=== PATIENT | female | born 1945 | race Caucasian/White ===

== ENCOUNTER 2023-08-17 21:35 | Observation (INO) ==
[2023-08-17 22:40] LABS: iSTAT Creatinine 0.9 mg/dl (0.6-1.3); iSTAT Hemoglobin 13.6 g/dl (12.0-16.0); iSTAT Ionized Calcium 1.16 mmol/l (1.12-1.32); iSTAT Potassium 3.6 mmol/L (3.3-5.0)
--- NOTE | 2023-08-17 22:47 | Emergency Department Note ---
Impression & Plan Acute weakness, Emphysema of lung, Hypoxia, Ataxia ED Provider Note Name: EDWIN LIEBERMAN Age: 77 Sex: Female Arrives Via: Ambulance Informant: Patient and daughter ED Provider: Cirilo Palma MD Chief Complaint: Weakness Impression: As per impressions above Medical Decision Makin-year-old female who is a daily smoker arrives for evaluation of relatively rapid onset fatigue weakness and lethargy over the last 12 to 24 hours. Patient has not seen a primary care provider in almost 50 years. No specific diagnoses. On arrival she is moderately hypertensive and appears bit dehydrated. I exam is consistent with emphysema as is chest x-ray. She is mildly hypoxic though no clear evidence of infection. Suspect this may be chronic hypoxia for her given chronic lung disease. CT of the head is fortunately unremarkable. She has been weak generally without any focal neurologic deficits. Symptoms ongoing for at least 12 hours thus not a tPA candidate. No focal neurologic deficit to suspect large vessel occlusion. Given patient's generalized weakness her hypoxia and no outpatient provider to speak of clearly hospitalization would be indicated for further workup and evaluation. After discussing with hospitalist will give her dose of aspirin 324 mg p.o. as a continue workup for stroke months other pathology. She is not significantly dyspneic nor tachycardic and given more likely cause of this emphysema of her hypoxia I do not think this is consistent with PE at this time. Triage/Nursing Notes reviewed by Me Differential:Infection, dehydration, metabolic abnormality, hypo/hyperglycemia, electrolyte disturbance, anemia, hypoxia, cardiac sources, intracerebral event, toxicologic, neurologic, as well as other pathologies. Vital Signs: reviewed and remarkable for hypoxia mild Interventions: Aspirin 324 mg p.o. and nasal cannula O2 Labs:ED labs Reviewed by me and remarkable for no significant abnormalities Imaging:CT of the head without contrast as per my informal interpretation no mass effect or blood appreciated. Confirmed by radiologist. 1 view chest x-ray as per my interpretation bilateral emphysematous findings. No overt infiltrate nor significant effusion appreciated. EKG:As per my interpretation. Indication weakness. Normal sinus rhythm at 71 bpm QTc of 432. There is no ectopy nor ischemia. There are no previous EKGs for comparison. Of note there is anterior Q wave which could mean previous infarct. Cardiac/Tele Monitoring: Cardiac Monitoring: An Order was placed for continuous cardiac monitoring. The monitor shows a rate of 70 with a normal sinus rhythm. Consults:Dr Lorenzo of the [facility] discussed with him and plan to hospitalize Plan: Disposition:Hospitalization. Condition: Good History of Present Illness: 77-year-old female arrives for evaluation of altered mental status. Patient has not actually seen a physician in the last 50-marcos years other than the time she broke her right wrist a few more years ago. Patient apparently has been very lethargic and tired throughout the day. She has not been wanting to get off the couch and has not been interacting as normally. When trying to get her up family notes she sways from [id number] and was so unsteady they called 911. She does not have a specific arm or leg that was weak. While she has slow speech and she cannot remember the date she does not have any specific slurred speech that daughter is noted. No known recent falls or trauma. No fevers. She did have an episode of dry heaves at 1 point today. Past Medical History:Unknown as does not see any doctors Home Medications:No daily medications. Allergies:No known drug allergy Vitals:Blood Pressure: 192/106, Pulse 71, RR 20, T 36.6C, O2 98% on 2L NC Physical Exam: GENERAL: Patient is tired appearing and in mild distress. RESPIRATORY: No dyspnea. Clear to auscultation and equal bilaterally. CARDIOVASCULAR: Regular rate and rhythm.No murmur appreciated. GASTROINTESTINAL: Abdomen soft, non-tender, no peritonitis. EXTREMITIES: Normal motion all extremities, no cyanosis, no edema. NEUROLOGIC: Awake answers questions but not oriented. No focal neurologic deficits appreciated SKIN: No rash, no jaundice, no diaphoresis. PSYCH: Appropriate GCS: 15 ED Course: Times/Reassessments: Patient stable throughout. Blood pressure is starting to trend down a bit. 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 Beliefs That Will Affect Care: None Current Living Situation: Family Current Living Situation Comment: with daughter dawood Other Information That Helps Us Care for You: No Feels Safe at Home: Yes Safety Concerns: Feels Safe At This Time Assistive Devices: None Allergies Allergies Allergy/AdvReac Type Severity Reaction Status Date / Time No Known Allergies Allergy Unverified 12/24/19 10:00 Home Meds Home Medications Medication Instructions Recorded Confirmed No Known Home Medications 08/18/23 08/18/23 Results & Data (ED) Vital Signs Vital Signs - 24 hr 08/17/23 21:53 08/17/23 21:58 08/17/23 22:00 Temperature 36.6 C Temperature Source Oral Pulse Rate 92 H 70 Pulse Rate [Apical] Pulse Rate from SpO2 Sensor Pulse Rhythm Pulse Rhythm [Apical] Pulse Strength [Apical] Respiratory Rate 24 Respiratory Effort / Characteristics Non-Labored Spontaneous Respiratory Depth Normal Respiratory Pattern Regular Blood Pressure 177/112 H Blood Pressure [Right Arm] Blood Pressure Mean 133 Blood Pressure Mean [Right Arm] Blood Pressure Position [Right Arm] Pulse Oximetry 86 L 86 L Oxygen Delivery Method Room Air Room Air Oxygen Flow Rate 0 Sepsis Recent Fever Within 48 Hours No Sepsis New/Unexplained Change in Mental Status No Sepsis Action Taken by Nursing No Action Required Oxygen Flow Rate - Titration 2 Pulse Oximetry Post Tiitration 95 08/17/23 22:05 08/17/23 22:32 08/17/23 22:51 Temperature Temperature Source Pulse Rate 71 Pulse Rate [Apical] 70 Pulse Rate from SpO2 Sensor Pulse Rhythm Regular Pulse Rhythm [Apical] Regular Pulse Strength [Apical] Normal Respiratory Rate 22 20 Respiratory Effort / Characteristics Non-Labored Spontaneous Respiratory Depth Normal Respiratory Pattern Regular Blood Pressure Blood Pressure [Right Arm] 192/106 H Blood Pressure Mean Blood Pressure Mean [Right Arm] 134 Blood Pressure Position [Right Arm] Lying Pulse Oximetry 99 98 91 Oxygen Delivery Method Nasal Cannula Nasal Cannula Room Air Oxygen Flow Rate 2 2 Sepsis Recent Fever Within 48 Hours Sepsis New/Unexplained Change in Mental Status Sepsis Action Taken by Nursing Oxygen Flow Rate - Titration Pulse Oximetry Post Tiitration 08/17/23 23:09 08/17/23 23:30 08/18/23 00:30 Temperature Temperature Source Pulse Rate 67 70 66 Pulse Rate [Apical] Pulse Rate from SpO2 Sensor 67 66 65 Pulse Rhythm Pulse Rhythm [Apical] Pulse Strength [Apical] Respiratory Rate 23 21 18 Respiratory Effort / Characteristics Respiratory Depth Respiratory Pattern Blood Pressure 163/102 H 154/92 H 146/93 H Blood Pressure [Right Arm] Blood Pressure Mean 122 112 110 Blood Pressure Mean [Right Arm] Blood Pressure Position [Right Arm] Pulse Oximetry 97 98 96 Oxygen Delivery Method Nasal Cannula Nasal Cannula Nasal Cannula Oxygen Flow Rate 2 1 1 Sepsis Recent Fever Within 48 Hours Sepsis New/Unexplained Change in Mental Status Sepsis Action Taken by Nursing Oxygen Flow Rate - Titration Pulse Oximetry Post Tiitration 08/18/23 01:00 Temperature Temperature Source Pulse Rate 73 Pulse Rate [Apical] Pulse Rate from SpO2 Sensor 71 Pulse Rhythm Pulse Rhythm [Apical] Pulse Strength [Apical] Respiratory Rate 23 Respiratory Effort / Characteristics Respiratory Depth Respiratory Pattern Blood Pressure 181/105 H Blood Pressure [Right Arm] Blood Pressure Mean 130 Blood Pressure Mean [Right Arm] Blood Pressure Position [Right Arm] Pulse Oximetry 96 Oxygen Delivery Method Nasal Cannula Oxygen Flow Rate 1 Sepsis Recent Fever Within 48 Hours Sepsis New/Unexplained Change in Mental Status Sepsis Action Taken by Nursing Oxygen Flow Rate - Titration Pulse Oximetry Post Tiitration Laboratory Data 08/18/23 05:50 08/18/23 05:50 Lab Results 08/17/23 08/17/23 08/17/23 Range/Units 22:07 22:15 22:55 WBC 10.50 (4.8-10.8) K/ul RBC 4.23 (4.20-5.40) M/uL Hgb 12.6 (12.0-16.0) g/dl POC Hgb 13.6 (12.0-16.0) g/dl Hct 39.6 (37.0-47.0) % POC Hct 40 (37-47) % MCV 93.6 (80.0-100.0) fL MCH 29.8 (25.0-34.0) pg MCHC 31.8 L (32.0-36.0) g/dL RDW Std Deviation 46.6 H (36.4-46.3) fL RDW Coeff of Sammy 13.5 (11.5-14.5) % Plt Count 338 (130-400) K/uL MPV 10.1 (9.4-12.4) fL PT 11.0 (9.0-12.0) Seconds INR 1.0 (0.9-1.1) APTT 21 (21-31) Seconds PTT Ratio 0.7 POC Sodium 136 (135-144) mmol/L Sodium 136 (136-145) mmol/L POC Potassium 3.6 (3.3-5.0) mmol/L Potassium 3.6 (3.5-5.1) mmol/L POC Chloride 100 L (101-112) mmol/L Chloride 100 (98-107) mmol/L Carbon Dioxide 27 (21-32) mmol/L POC Total CO2 28 (24-31) mmol/L Anion Gap 9 (3-11) POC Anion Gap 12.0 L (16-25) mmol/L POC BUN 14 (7-18) mg/dl BUN 15 (6-23) mg/dl Creatinine 0.95 (0.6-1.2) mg/dl POC Creatinine 0.9 (0.6-1.3) mg/dl Est Cr Clr Drug Dosing 36.5 ml/min Est GFR ( Amer) 67.9 ml/min Est GFR (Non-Af Amer) 58.6 ml/min BUN/Creatinine Ratio 15.8 (10-20) Glucose 148 H (70-99(Fasting)) mg/dl POC Glucose (other) 147 H (70-99) mg/dl Calcium 9.4 (8.6-10.3) mg/dl POC Ioniz Calcium Lashonda 1.16 (1.12-1.32) mmol/l Magnesium 2.1 (1.7-2.4) mg/dl Total Bilirubin 0.3 (0.2-1.0) mg/dl AST 16 (13-39) U/L ALT 8 (7-52) U/L Alkaline Phosphatase 79 (34-104) U/L Total Protein 8.0 (6.0-8.3) gm/dl Albumin 4.1 (3.4-5.0) gm/dl Globulin 3.9 (2.5-4.0) gm/dl Albumin/Globulin Ratio 1.1 (0.9-2) SARS-CoV-2 (PCR) NEGATIVE (Negative) Influenza Type A (PCR) Negative (Neg) Influenza Type B (PCR) Negative (Neg) RSV (RT-PCR) Negative (Neg) Administered Medications Aspirin (Aspirin 81 Mg Ectab) 81 mg PO [facility] Stop: 09/17/23 08:59 Last Admin: 08/18/23 08:59 Dose: 81 mg Documented By: VICKI Clopidogrel Bisulfate (Clopidogrel Bisulfate 75 Mg Tab) 75 mg PO QAM [facility] Stop: 09/17/23 11:44 Last Admin: 08/18/23 13:40 Dose: 75 mg Documented By: VICKI Heparin Sodium (Porcine) (Heparin Sod 5,000 Unit/0.5 Ml Vial) 5,000 units SQ Q12 [facility] Stop: 09/17/23 08:59 Last Admin: 08/18/23 08:58 Dose: 5,000 units Documented By: VICKI Ondansetron HCl (Ondansetron Inj 2 Mg/Ml 2 Ml Vial) 4 mg IV Q6H PRN PRN Reason: Nausea Stop: 09/17/23 04:08 Last Admin: 08/18/23 05:45 Dose: 4 mg Documented By: TAHIR Discontinued Medications Aspirin (Aspirin 81 Mg Chew) 324 mg PO NOW STA Stop: 08/18/23 02:02 Last Admin: 08/18/23 02:46 Dose: 324 mg Documented By: CRISTOBAL Atorvastatin Calcium (Atorvastatin 40 Mg Tab) 40 mg PO [facility] Stop: 09/17/23 08:59 Last Admin: 08/18/23 08:59 Dose: 40 mg Documented By: VICKI Potassium Chloride/Sodium Chloride (Normal Saline W/20 Meq Kcl) 20 meq in 1,000 mls @ 80 mls/hr IV .[id number] STA; Protocol Stop: 08/18/23 15:07 Last Infusion: 08/18/23 15:34 Dose: Infused Documented By: Admin: 08/18/23 02:46 Dose: 80 mls/hr Documented By: CRISTOBAL Lorazepam 0.25 mg/ Syringe 0.25 mls @ 2 mls/min IV NOW STA Stop: 08/18/23 09:34 Last Admin: 08/18/23 11:24 Dose: Not Given Documented By: VICKI Ioversol (Optiray 320 125ml) 115 ml IV ONCE ONE Stop: 08/18/23 02:11 Last Admin: 08/18/23 02:10 Dose: 115 ml Documented By: VALERY Imaging Data Radiologist's Impression: Chest X-Ray 08/17/23 22:30 XR chest 1V portable CLINICAL HISTORY: stroke alert TECHNIQUE: Single frontal radiograph of the chest was obtained. Comparison: None available at the time of this dictation. FINDINGS: No lines and tubes are seen. The cardiomediastinal silhouette is normal. Emphysema is seen. No evidence of pleural effusion or pneumothorax. IMPRESSION: No acute chest disease. ACT 112: Negative or not required by law. Electronically signed by: Omid Mcnamara M.D. 08/18/2023 9:42 AM Discharge Plan Visit Data Chief Complaint: Dizziness Stated Complaint: NAUSEA/DIZZINESS ED Provider: Cirilo Palma Discharge Problem: Acute weakness, Emphysema of lung, Hypoxia, Ataxia Patient Disposition: Admitted As Inpatient Discharge Instructions Interventions: ED Discharge Assessment Last Done: 08/18/23 03:26 Discharge Problem: Emphysema of lung Qualifiers: Emphysema type: panlobular Qualified Code(s): J43.1 - Panlobular emphysema
[2023-08-17 23:03] LABS: Hematocrit (blood only) 39.6 % (37.0-47.0); Hemoglobin 12.6 g/dl (12.0-16.0); Mean Corpuscular Hemoglobin 29.8 pg (25.0-34.0); Mean Corpuscular Hgb Conc 31.8 g/dL (32.0-36.0); Mean Corpuscular Volume 93.6 fL (80.0-100.0); Mean Platelet Volume 10.1 fL (9.4-12.4); Platelet Count 338 K/uL (130-400); RDW Coefficient of Variation 13.5 % (11.5-14.5); RDW Standard Deviation 46.6 fL (36.4-46.3); Red Blood Count 4.23 M/uL (4.20-5.40)
[2023-08-17 23:15] LABS: Albumin Globulin Ratio 1.1 (0.9-2); Albumin Level 4.1 gm/dl (3.4-5.0); BUN Creatinine Ratio 15.8 (10-20); Bilirubin,Total 0.3 mg/dl (0.2-1.0); Calcium 9.4 mg/dl (8.6-10.3); Creatinine Clr Calc Pharmacy 36.5 ml/min; Est GFR (African American) 67.9 ml/min; Est GFR (Non-African American) 58.6 ml/min; Globulin 3.9 gm/dl (2.5-4.0); Magnesium 2.1 mg/dl (1.7-2.4); Potassium 3.6 mmol/L (3.5-5.1)
[2023-08-17 23:26] LABS: Partial Thromboplastin Ratio 0.7; Partial Thromboplastin Time 21 Seconds (21-31)
[2023-08-17 23:55] LABS: Influenza A virus by PCR Negative (Neg); Influenza B virus by PCR Negative (Neg); RSV by PCR Negative (Neg); SARS CoV2 RNA(COVID-19) Ceph NEGATIVE (Negative)
--- NOTE | 2023-08-18 01:10 | CT Scan Report ---
Exam(s): CT HEAD Without Contrast EXAM: CT Head Without Intravenous Contrast CLINICAL HISTORY: Reason for exam: Dizziness. TECHNIQUE: Axial computed tomography images of the head/brain without intravenous contrast. CTDI is 36.55 mGy and DLP is 625.8 mGy-cm. Automated exposure control was utilized for the study. A dose lowering technique was utilized adhering to the principles of ALARA. COMPARISON: No relevant prior studies available. FINDINGS: Brain: Volume loss with prominent ventricles and sulci. Periventricular white matter hypoattenuation likely reflects chronic small vessel disease. No hemorrhage. Ventricles: See above. Bones/joints: Unremarkable. No acute fracture. Soft tissues: Unremarkable. Sinuses: Unremarkable as visualized. No acute sinusitis. Mastoid air cells: Unremarkable as visualized. No mastoid effusion. IMPRESSION: No acute findings in the head/brain. Electronically signed by: Laura Lamb M.D. 08/18/23 01:09 AM
--- NOTE | 2023-08-18 01:52 | History & Physical Report ---
Date of Service August 18, 2023 Assessment & Plan (1) Altered mental status: (2) Fatigue: (3) Gait instability: (4) Lethargy: (5) Tobacco use disorder: (6) Emphysema lung: Plan Altered mental status- The patient will be admitted to telemetry for serial cardiac enzymes, serial EKG's, cardiac rhythm monitoring and a 2-D echocardiogram with Dopplers. Symptoms began acutely earlier in the day Symptoms of fatigue, lethargy and unsteadiness on feet CT scan of head without contrast negative Order CTA head and neck Urinalysis pending Stroke without tPA order set Permissive hypertension Recommend aspirin 324 mg now, then 81 mg every morning Consult PT/OT/speech NSS + KCl 20 mill equivalents at 80 mL/h x 1 L Tobacco use disorder- Tobacco use since she was a teenager Reports smoking 5 cigarettes daily Cessation counseling Emphysema- Chest x-ray is suggestive of Mildly hypoxic DuoNebs every 2 hours as needed Hyperglycemia- Glucose 148 on admission labs Repeat in a.m. Check hemoglobin A1c and a fasting lipid panel History of Present Illness Chief Complaint: The patient presents emergency department with lethargy, fatigue, unsteadiness on feet and mild confusion that began earlier in the day today, and persisted throughout the day. Primary Care Provider: NO PCP The patient is a 77-year-old female with no significant past medical history other than right wrist fracture, and 60-year tobacco use history. She presents to the emergency department with symptoms as noted above. She denies any recent travels or sick exposures. She denies any associated respiratory GI or urinary type symptoms. She has not had any previous symptoms of gait instability, but also reportedly does not regularly physically active. She has not had any recent weight loss Allergies Allergy/AdvReac Type Severity Reaction Status Date / Time No Known Allergies Allergy Unverified 12/24/19 10:00 Home Medications Medication Instructions Recorded Confirmed Type No Known Home Medications 08/18/23 08/18/23 History Past Med/Surg History Medical History (Updated 08/18/23 @ 02:19 by Brayan Lorenzo MD) Tobacco use disorder Closed fracture of right distal radius Social History Smoking Status: Current every day smoker Tobacco Type: Cigarettes Feels Safe at Home: Yes Review of Systems Review of Systems: The patient denies chest pain, palpitations, shortness of breath, dyspnea on exertion, cough, lower extremity swelling, sore throat, fevers, chills, sweats, weight change, nausea, vomiting, diarrhea , constipation, abdominal pain, pelvic pain, blood in urine or stool, dysuria, urinary frequency or urgency, lightheadedness, dizziness, headache, memory loss, loss of consciousness, rash, abnormal bruising or bleeding, focal weakness, numbness or tingling in arms or legs, generalized arthralgias or myalgias, back or neck pain, or night sweats. The review of systems is otherwise negative other than for that already noted above, and at least 10 systems have been reviewed. Physical Exam Physical Exam: The patient is awake, alert and oriented 3, appears relatively thin, normocephalic and atraumatic, lying in bed and in no acute distress. HEENT--PERRL, EOMI, mucous membranes and oropharynx mildly dry. Neck--supple. No JVD. No bruits. Thyroid normal, trachea midline, no adenopathy. Heart--normal S1 and S2. No murmurs, rubs or gallops. Lungs--clear bilaterally, but decreased breath sounds throughout. No respiratory distress, no accessory muscle use. Abdomen--normal bowel sounds and soft. Nontender. Nondistended, no hernias or masses, no organomegaly. Extremities--No edema. Dermatologic--normal skin turgor, normal color, no abnormal lymph nodes, no rash. Neurologic--cranial nerves II through XII grossly intact. Rheumatologic--normal range of motion. Psychiatric--normal affect. Results & Data Results & Data Vital Signs (Past 12 Hours) Vital Signs Temp Pulse Pulse Resp BP BP Pulse Ox 08/18/23 00:30 66 18 146/93 H 96 08/17/23 23:30 70 21 154/92 H 98 08/17/23 23:09 67 23 163/102 H 97 08/17/23 22:51 91 08/17/23 22:32 71 20 98 08/17/23 22:05 70 22 192/106 H 99 08/17/23 22:00 70 08/17/23 21:58 86 L 08/17/23 21:53 36.6 C 92 H 24 177/112 H 86 L O2 Del Method O2 Flow Rate 08/18/23 00:30 Nasal Cannula 1 08/17/23 23:30 Nasal Cannula 1 08/17/23 23:09 Nasal Cannula 2 08/17/23 22:51 Room Air 08/17/23 22:32 Nasal Cannula 2 08/17/23 22:05 Nasal Cannula 2 08/17/23 22:00 08/17/23 21:58 Room Air 0 08/17/23 21:53 Room Air Laboratory Results Laboratory Results WBC 10.50 K/ul (4.8-10.8) 08/17/23 22:07 RBC 4.23 M/uL (4.20-5.40) 08/17/23 22:07 Hgb 12.6 g/dl (12.0-16.0) 08/17/23 22:07 POC Hgb 13.6 g/dl (12.0-16.0) 08/17/23 22:15 Hct 39.6 % (37.0-47.0) 08/17/23 22:07 POC Hct 40 % (37-47) 08/17/23 22:15 MCV 93.6 fL (80.0-100.0) 08/17/23 22:07 MCH 29.8 pg (25.0-34.0) 08/17/23 22:07 MCHC 31.8 g/dL (32.0-36.0) L 08/17/23 22:07 RDW Std Deviation 46.6 fL (36.4-46.3) H 08/17/23 22:07 RDW Coeff of Sammy 13.5 % (11.5-14.5) 08/17/23 22:07 Plt Count 338 K/uL (130-400) 08/17/23 22:07 MPV 10.1 fL (9.4-12.4) 08/17/23 22:07 PT 11.0 Seconds (9.0-12.0) 08/17/23 22:07 INR 1.0 (0.9-1.1) 08/17/23 22:07 APTT 21 Seconds (21-31) 08/17/23 22:07 PTT Ratio 0.7 08/17/23 22:07 POC Sodium 136 mmol/L (135-144) 08/17/23 22:15 Sodium 136 mmol/L (136-145) 08/17/23 22:07 POC Potassium 3.6 mmol/L (3.3-5.0) 08/17/23 22:15 Potassium 3.6 mmol/L (3.5-5.1) 08/17/23 22:07 POC Chloride 100 mmol/L (101-112) L 08/17/23 22:15 Chloride 100 mmol/L (98-107) 08/17/23 22:07 Carbon Dioxide 27 mmol/L (21-32) 08/17/23 22:07 POC Total CO2 28 mmol/L (24-31) 08/17/23 22:15 Anion Gap 9 (3-11) 08/17/23 22:07 POC Anion Gap 12.0 mmol/L (16-25) L 08/17/23 22:15 POC BUN 14 mg/dl (7-18) 08/17/23 22:15 BUN 15 mg/dl (6-23) 08/17/23 22:07 Creatinine 0.95 mg/dl (0.6-1.2) 08/17/23 22:07 POC Creatinine 0.9 mg/dl (0.6-1.3) 08/17/23 22:15 Est Cr Clr Drug Dosing 36.5 ml/min 08/17/23 22:07 Est GFR ( Amer) 67.9 ml/min 08/17/23 22:07 Est GFR (Non-Af Amer) 58.6 ml/min 08/17/23 22:07 BUN/Creatinine Ratio 15.8 (10-20) 08/17/23 22:07 Glucose 148 mg/dl (70-99(Fasting)) H 08/17/23 22:07 POC Glucose (other) 147 mg/dl (70-99) H 08/17/23 22:15 Calcium 9.4 mg/dl (8.6-10.3) 08/17/23 22:07 POC Ioniz Calcium Lashonda 1.16 mmol/l (1.12-1.32) 08/17/23 22:15 Magnesium 2.1 mg/dl (1.7-2.4) 08/17/23 22:07 Total Bilirubin 0.3 mg/dl (0.2-1.0) 08/17/23 22:07 AST 16 U/L (13-39) 08/17/23 22:07 ALT 8 U/L (7-52) 08/17/23 22:07 Alkaline Phosphatase 79 U/L (34-104) 08/17/23 22:07 Total Protein 8.0 gm/dl (6.0-8.3) 08/17/23 22:07 Albumin 4.1 gm/dl (3.4-5.0) 08/17/23 22:07 Globulin 3.9 gm/dl (2.5-4.0) 08/17/23 22:07 Albumin/Globulin Ratio 1.1 (0.9-2) 08/17/23 22:07 SARS-CoV-2 (PCR) NEGATIVE (Negative) 08/17/23 22:55 Influenza Type A (PCR) Negative (Neg) 08/17/23 22:55 Influenza Type B (PCR) Negative (Neg) 08/17/23 22:55 RSV (RT-PCR) Negative (Neg) 08/17/23 22:[address] 08/17/23 22:30 Exam(s): CT HEAD Without Contrast EXAM: CT Head Without Intravenous Contrast CLINICAL HISTORY: Reason for exam: Dizziness. TECHNIQUE: Axial computed tomography images of the head/brain without intravenous contrast. CTDI is 36.55 mGy and DLP is 625.8 mGy-cm. Automated exposure control was utilized for the study. A dose lowering technique was utilized adhering to the principles of ALARA. COMPARISON: No relevant prior studies available. FINDINGS: Brain: Volume loss with prominent ventricles and sulci. Periventricular white matter hypoattenuation likely reflects chronic small vessel disease. No hemorrhage. Ventricles: See above. Bones/joints: Unremarkable. No acute fracture. Soft tissues: Unremarkable. Sinuses: Unremarkable as visualized. No acute sinusitis. Mastoid air cells: Unremarkable as visualized. No mastoid effusion. IMPRESSION: No acute findings in the head/brain. Electronically signed by: Laura Lamb M.D. 08/18/23 01:09 AM Code Status & VTE Plan Code Status Full code VTE Prophylaxis Plan VTE Prophylaxis will be ordered: Yes PG Care Time/CCT Total # of Minutes Spent Total Time Spent with Patient: Total time spent is greater than 50% in coordination of care (as documented) at patient's floor/unit and/or counseling patient: Coding Level of Care Code 56959 INT INP/OBS CARE 3/75MIN Diagnoses Altered mental status R41.82 Fatigue R53.83 Gait instability R26.81 Lethargy R53.83 Tobacco use disorder F17.200 Emphysema lung J43.9
[2023-08-18] MEDS: OPTIRAY 320 125ml IV ONE (02:10)
[2023-08-18] MEDS ORDERED: ALBUT/IPRATROP 3MG/0.5MG NEB 3 ML VIAL NEB PRN (02:23)
[2023-08-18] MEDS: NSS + 20MEQ KCL 20 MEQ/1,000 ML BAG IV STA (02:46)
[2023-08-18] MEDS: ASPIRIN 81 MG CHEW PO STA (02:46)
[2023-08-18 02:53] LABS: Appearance Urine Clear (Clear); Bacteria Urine Automated Negative (Negative); Bilirubin Urine Negative (Negative); Blood Urine Negative (Negative); Color Urine Yellow; Glucose Urine UA Negative (Negative); Ketones Urine Trace (Negative); Leukocyte Esterase Urine Trace (Negative); Nitrite Urine Negative (Negative); Protein Urine Negative (Negative); RBC Urine Automated 0-4 /hpf (0-4); Specific Gravity Urine 1.015 (1.000-1.030); Urobilinogen Urine Negative (Negative)
--- NOTE | 2023-08-18 03:44 | CT Scan Report ---
Exam(s): CTA HEAD With Contrast IV Amt: 115 cc's of optiray 320 EXAM: CT Angiography Head With Intravenous Contrast CLINICAL HISTORY: Reason for exam: stroke-like symptoms. TECHNIQUE: Axial computed tomographic angiography images of the head with intravenous contrast. CTDI is 18.68 mGy and DLP is 365.58 mGy-cm. Automated exposure control was utilized for the study. A dose lowering technique was utilized adhering to the principles of ALARA. MIP reconstructed images were created and reviewed. CONTRAST: Patient received 115 cc's of optiray 320 of IV contrast COMPARISON: CT head dated 08/18/23 FINDINGS: Right internal carotid artery: No acute findings. Intracranial segment is patent with no significant stenosis. No aneurysm. Right anterior cerebral artery: Unremarkable. No occlusion or significant stenosis. No aneurysm. Right middle cerebral artery: Unremarkable. No occlusion or significant stenosis. No aneurysm. 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 Series 3, images 97-101. No occlusion or significant stenosis. Right vertebral artery: Unremarkable as visualized. Left internal carotid artery: No acute findings. Intracranial segment is patent with no significant stenosis. No aneurysm. Left anterior cerebral artery: Unremarkable. No occlusion or significant stenosis. No aneurysm. Left middle cerebral artery: Unremarkable. No occlusion or significant stenosis. No aneurysm. Left posterior cerebral artery: Unremarkable. No occlusion or significant stenosis. No aneurysm. Left vertebral artery: Unremarkable as visualized. Basilar artery: Unremarkable. No occlusion or significant stenosis. No aneurysm. IMPRESSION: 1. No large vessel occlusion or severe stenosis. 2. 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 Electronically signed by: Laura Lamb M.D. 08/18/23 03:43 AM
--- NOTE | 2023-08-18 03:53 | CT Scan Report ---
Exam(s): CTA NECK With Contrast IV Amt: 115 cc's of optiray 320 EXAM: CT Angiography Neck With Intravenous Contrast CLINICAL HISTORY: Reason for exam: stroke-like symptoms. TECHNIQUE: Routine carotid CT angiography protocol was performed with intravenous contrast. NASCET criteria using the distal ICAs for comparison were used for evaluation of stenoses. CTDI is 10.61 mGy and DLP is 395.58 mGy-cm. Automated exposure control was utilized for the study. A dose lowering technique was utilized adhering to the principles of ALARA. MIP reconstructed images were created and reviewed. CONTRAST: Patient received 115 cc's of optiray 320 of IV contrast COMPARISON: None. FINDINGS: VASCULATURE: Right common carotid artery: Atherosclerotic calcifications and plaque of the bilateral common carotid arteries, carotid bulbs and internal carotid arteries. No occlusion or significant stenosis. No dissection. Right internal carotid artery: See above. No occlusion or significant stenosis. Right external carotid artery: Unremarkable. No occlusion. Right vertebral artery: Unremarkable. No occlusion or significant stenosis. No dissection. Left common carotid artery: See above. No occlusion or significant stenosis. No dissection. Left internal carotid artery: See above. No occlusion. Moderate focal stenosis of the proximal left internal carotid artery. Left external carotid artery: Unremarkable. No occlusion. Left vertebral artery: Unremarkable. No occlusion or significant stenosis. No dissection. Aorta: Moderate atherosclerotic calcifications of the aortic arch and proximal great vessels. NECK: Bones/joints: Unremarkable. No acute fracture. Soft tissues: Unremarkable. Lung apices: Marked emphysematous changes. CAROTID STENOSIS REFERENCE USING NASCET CRITERIA: % ICA stenosis = (1 - narrowest ICA diameter/diameter of distal cervical ICA) x 100. Mild - <50% stenosis. Moderate - 50-69% stenosis. Severe - 70-94% stenosis. Near occlusion - 95-99% stenosis. Occluded - 100% stenosis. IMPRESSION: 1. No acute findings in the arteries of the neck. 2. Moderate left proximal ICA stenosis. Electronically signed by: Laura Lamb M.D. 08/18/23 03:52 AM
[2023-08-18] MEDS ORDERED: PHARMACIST DISCHARGE MED REC CONSULT PRN (04:09)
[2023-08-18] MEDS ORDERED: ACETAMINOPHEN 325 MG TAB PO PRN (04:09)
[2023-08-18] MEDS: ONDANSETRON INJ 2 MG/ML 2 ML VIAL IV PRN (05:45)
[2023-08-18 06:03] LABS: Base Excess VBG 3.4 mEq/L; HCO3 VBG 30 mmol/L; Oxygen Saturation VBG < 60.0 %; PCO2 VBG 50 mmHg (38-50); PO2 VBG 26 mmHg; pH VBG 7.38 (7.36-7.41)
[2023-08-18 06:05] LABS: Basophils # (auto) 0.09 K/uL (0.00-0.20); Basophils % (auto) 0.7 %; Hematocrit (blood only) 39.9 % (37.0-47.0); Immature Granulocytes # (auto) 0.05 K/uL (0.01-0.20); Immature Granulocytes % (auto) 0.4 %; Lymphocytes # (auto) 2.04 K/uL (1.20-3.40); Lymphocytes % (auto) 16.6 %; Mean Corpuscular Hemoglobin 30.2 pg (25.0-34.0); Mean Corpuscular Hgb Conc 32.6 g/dL (32.0-36.0); Mean Corpuscular Volume 92.6 fL (80.0-100.0); Mean Platelet Volume 9.3 fL (9.4-12.4); Monocytes # (auto) 0.68 K/uL (0.11-0.59); Monocytes % (auto) 5.5 %; Neutrophils # (auto) 9.45 K/uL (1.40-6.50); Neutrophils % (auto) 76.8 %; Platelet Count 329 K/uL (130-400); RDW Coefficient of Variation 13.2 % (11.5-14.5); RDW Standard Deviation 45.7 fL (36.4-46.3); Red Blood Count 4.31 M/uL (4.20-5.40); White Blood Count 12.31 K/ul (4.8-10.8)
[2023-08-18 06:32] LABS: Troponin I High Sensitivity 7.7 pg/ml (0-14)
[2023-08-18 06:59] LABS: Calcium 9.1 mg/dl (8.6-10.3)
[2023-08-18 07:05] LABS: BUN Creatinine Ratio 14.1 (10-20); Chol HDL Ratio 3.5 (0-5); Creatinine Clr Calc Pharmacy 37.2 ml/min; Est GFR (African American) 77.7 ml/min
[2023-08-18 07:15] LABS: Estimated Average Glucose 120 mg/dl; Hemoglobin A1C 5.8 % (4.5-5.6)
--- NOTE | 2023-08-18 07:40 | Electrocardiogram Report ---
Test Reason : Blood Pressure : / mmHG Vent. Rate : 071 BPM Atrial Rate : 071 BPM P-R Int : 154 ms QRS Dur : 092 ms QT Int : 398 ms P-R-T Axes : 076 -58 064 degrees QTc Int : 432 ms Normal sinus rhythm Left axis deviation Possible Septal infarct , age undetermined Abnormal ECG No previous ECGs available Confirmed by Mike Giordano ([id number]) on 08/18/2023 7:39:41 AM Referred By: REFERRED SELF Confirmed By:Mike Giordano
--- NOTE | 2023-08-18 08:17 | Hospitalist Progress Note ---
Date of Service August 18, 2023 Assessment & Plan (1) Altered mental status: Plan: 77 F with no routine primary care or managed chronic conditions, who presented to the hospital after episodic dizziness and confusion. Now admitted for stroke workup. Currently stable. AMS/ischemic stroke -CT brain negative for acute ischemic or hemorrhagic process. 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 -CTA neck: Moderate proximal left ICA stenosis. -MRI brain complete, report pending. Per preliminary neurologist read: subtle change in central midbrain area highly suspicious for ischemic lesion -Total cholesterol 251. LDL-166, HDL-71. Cholesterol/HDL ratio-3.5 -Now s/p aspirin 324 mg, heparin drip on admission. * Continue stroke precautions per protocol * DAPT: Aspirin 81 mg daily, Plavix 75 mg daily x 21 days. Continue either ASA or Plavix after 21 days (follow-up with neurology) * Increase atorvastatin to 80 mg (started on 40 mg on admission) * Maintain BP <220 systolic * Echocardiogram pending * Await PT/OT assessment for dispo recs Hyperlipidemia -Total cholesterol 251 on admission. LDL-166, HDL-71. -S/p atorvastatin 40 mg on admission. * Continue atorvastatin 80 mg as above Emphysema -Findings suggestive of the above on CXR. Patient has 60-year smoking history. -Mildly hypoxic on admission * As needed DuoNebs Tobacco Use Disorder * Cessation counseling Code: Full code Dispo: Med-Surg telemetry FEN/GI: Heart healthy DVT Prophylaxis: Heparin 5000 u q12h PT/OT: Yes Consults: Neurology Case Management: No (2) Fatigue: (3) Gait instability: (4) Lethargy: (5) Tobacco use disorder: (6) Emphysema lung: Admission and Anticipated Discharge Date Admission Date: August 18, 2023 Supervising Physician Co-Signing Physician Notes Attending Physician Supervision Note: I independently interviewed and examined the patient and verified the rivera history and physical, reviewed labs and image studies and agree with findings and care plan noted above. Mental status change - unclear etiology. Await clarification on MRI brain read. -mentation has cleared now. Moderate left proximal ICA stenosis - antiplatelet, statin. Probable stroke - await brain MRI read clarification. -permissive HTN -DAPT -statin. -heparin -pt/ot/speech -echo pending. Subjective Patient is awake and alert on arrival this morning. Daughter at bedside. Oriented x 3. She reports some orthostatic dizziness. Otherwise, she denies headache, vision changes, focal weakness or paresthesias. Per daughter, she does not sound dysarthric. Review of Systems Review of Systems: All systems reviewed & are unremarkable except as noted in HPI & below Physical Exam Physical Exam: General: no acute distress, speaking in full sentences Resp: good inspiratory effort, no labored breathing HEENT: conjunctivae appear clear, no audible congestion, no swelling noted face or lips CV: Irregularly irregular heart beat. No murmurs, gallops, or rubs. No pedal edema. Skin: skin appears dry, normal coloration, no rash visible on exposed skin areas Neuro: alert and oriented x3, no focal deficits appreciated Psych: euthymic affect, pleasant and interactive, logical thought process Results & Data Results & Data Vital Signs (Past 12 Hours) Vital Signs Temp Pulse Pulse Resp BP BP Pulse Ox 08/18/23 07:00 78 08/18/23 04:50 73 08/18/23 04:26 08/18/23 04:23 36.6 C 72 160/88 H 94 08/18/23 03:00 79 20 175/100 H 95 08/18/23 02:30 70 19 150/82 H 98 08/18/23 02:25 71 08/18/23 02:00 08/18/23 02:00 36.5 C 08/18/23 01:00 73 23 181/105 H 96 08/18/23 00:30 66 18 146/93 H 96 08/17/23 23:30 70 21 154/92 H 98 08/17/23 23:09 67 23 163/102 H 97 08/17/23 22:51 91 08/17/23 22:32 71 20 98 08/17/23 22:05 70 22 192/106 H 99 08/17/23 22:00 70 08/17/23 21:58 86 L 08/17/23 21:53 36.6 C 92 H 24 177/112 H 86 L O2 Del Method O2 Flow Rate 08/18/23 07:00 08/18/23 04:50 08/18/23 04:26 Nasal Cannula 1 08/18/23 04:23 Nasal Cannula 1 08/18/23 03:00 Nasal Cannula 1 08/18/23 02:30 Room Air 08/18/23 02:25 08/18/23 02:00 Nasal Cannula 1 08/18/23 02:00 08/18/23 01:00 Nasal Cannula 1 08/18/23 00:30 Nasal Cannula 1 08/17/23 23:30 Nasal Cannula 1 08/17/23 23:09 Nasal Cannula 2 08/17/23 22:51 Room Air 08/17/23 22:32 Nasal Cannula 2 08/17/23 22:05 Nasal Cannula 2 08/17/23 22:00 08/17/23 21:58 Room Air 0 08/17/23 21:53 Room Air Resident Activity Tracking Resident Involvement: Resident Care Provided Care Provided: Adult Hospital Medicine
[2023-08-18] MEDS: HEPARIN SOD 5,000 UNIT/0.5 ML VIAL SQ SCH (08:58)
[2023-08-18] MEDS: ASPIRIN 81 MG ECTAB PO SCH (08:59)
[2023-08-18] MEDS: ATORVASTATIN 40 MG TAB PO SCH (08:59)
--- NOTE | 2023-08-18 09:43 | XRay Report ---
XR chest 1V portable CLINICAL HISTORY: stroke alert TECHNIQUE: Single frontal radiograph of the chest was obtained. Comparison: None available at the time of this dictation. FINDINGS: No lines and tubes are seen. The cardiomediastinal silhouette is normal. Emphysema is seen. No eviden ce of pleural effusion or pneumothorax. IMPRESSION: No acute chest disease. ACT 112: Negative or not required by law. Electronically signed by: Omid Mcnamara M.D. 08/18/2023 9:42 AM
[2023-08-18] MEDS: LORazepam 0.25 MG in SYRINGE 0.125 ML IV STA (11:24)
--- NOTE | 2023-08-18 11:31 | Neurology Consultation ---
Date of Consultation August 18, 2023 Assessment & Plan (1) Ischemic stroke: History of Present Illness Attending Physician: Shawanda Colbert MD History of Present Illness pt this morning much feeling better. no more confusion. mri brain reviewed. final report not in but on my read there is very subtle change in central midbrain area that is highly suspicious for ischemic lesion.no weakness. admission HPI: The patient presents emergency department with lethargy, fatigue, unsteadiness on feet and mild confusion that began earlier in the day today, and persisted throughout the day. Primary Care Provider: NO PCP The patient is a 77-year-old female with no significant past medical history other than right wrist fracture, and 60-year tobacco use history. She presents to the emergency department with symptoms as noted above. She denies any recent travels or sick exposures. She denies any associated respiratory GI or urinary type symptoms. She has not had any previous symptoms of gait instability, but also reportedly does not regularly physically active. She has not had any recent weight loss Allergies Allergy/AdvReac Type Severity Reaction Status Date / Time No Known Allergies Allergy Unverified 12/24/19 10:00 Home Medications Medication Instructions Recorded Confirmed Type No Known Home Medications 08/18/23 08/18/23 History Patient History Medical History (Updated 08/18/23 @ 11:31 by Ata Catherine MD) Ischemic stroke Tobacco use disorder Closed fracture of right distal radius Social History Smoking Status: Current every day smoker Tobacco Type: Cigarettes Cigarettes Per Day: 1 pack every 2 days; Hx Alcohol Use: No Hx Substance Use: No Preferred Language: [place]ian Communication Ability: Effective Electro Mechanical Technologist Required: No Beliefs That Will Affect Care: None Current Living Situation: Family Current Living Situation Comment: with daughter dawood Other Information That Helps Us Care for You: No Feels Safe at Home: Yes Safety Concerns: Feels Safe At This Time Assistive Devices: None Review of Systems Review of Systems: All systems reviewed & are unremarkable except as noted in Subjective Constitutional: as per Subjective / HPI Eyes: as per Subjective / HPI Ear, Nose, Mouth, Throat: as per Subjective / HPI Respiratory: as per Subjective / HPI Cardiovascular: as per Subjective / HPI Gastrointestinal: as per Subjective / HPI Musculoskeletal: as per Subjective / HPI Integumentary: as per Subjective / HPI Neurologic: as per Subjective / HPI Psychiatric: as per Subjective / HPI Endocrine: as per Subjective / HPI Hematologic / Lymphatic: as per Subjective / HPI Allergy / Immunological: as per Subjective / HPI Exam (Neuro) Physical Exam: HEENT: normocephalic Neuro: Mental: AOx4, fluent speech, normal comprehension, no apraxia, no L/R confusion, no neglect CN: PERRL, Full EOM, symmetric face, intact sensation t/o face, midline T/U/P, 5/5 SCM/traps. Motor: No abnormal movements, normal tone and bulk, 5-/5 t/o bilaterally Sens: intact to touch b/l grossly Coord: intact FNT b/l DTR: 2+ sym b/l Gait: pt walked to bathroom this morning per family. Impression: 77 yo female with acute confusion and gait instability in setting of orthostatic hypotension and hypoxia (emphysema) . now back to baseline. pt mri brain is very subtle change on my reivew suspect ischemic lesion at the midbrain central area. pt likely had small ischemic stroke/TIA event. Recommendations: 1. Standard stroke work up as planned 2. antiplatelet therapy: 21 days for DA PT. * DAPT (dual antiplatelet therapy): start for pts with ABCD2 score 4 or higher. Initial loading dose with ASA 325mg and Plavix 300mg (if pt has not been started), then ASA 81mg daily and Plavix 75mg daily. Continue DAPT for 21 days if found small vessel disease only or continue for 90 days if found to have intr acranial large artery atherosclerosis. After that, can continue single antiplatelet therapy (either ASA or Plavix). 3. Images: TTE with bubble, CTA with mod erate left ICA stenosis (medical management). 4. Permissive Hypertension for next 24 h rs. Keep SBP goal range less than 220. Avoid hypotension. Do not stop beta-a[place] if on it. 6. Long-term SBP goal less than 130. 7. Plenty of hydration including IV flui d if possible (use isotonic solution) next 1-2 days. Avoid hypovolemia and hypotension. 8. Initiate DVT prevention therapy. 9. Avoid hypoglycemia, serum glucose goa l during hospitalization: 140-180. 10. Long-term HgA1c goal less than 7. 11. Start statin if not on it and no abs olute contraindication, long-term LDL goal less than 70. 12. Head of bed up 30 degrees if possibl e. 13. Stroke education by nursing and appr opriate staff. 14. Telemetry monitoring. Consider snf cardiac monitoring, i.e. MCOT (mobile cardiac outpatient telemetry) or ICM (insertable dust sampler, e.g. LINQ), if never had snf cardiac monitoring done previously. And if found to have atrial flutter or fibrillation, should consider anticoagulation therapy if no contraindication. 15. Fall precaution 16. Consult physical and occupational th erapy evaluation. 17. avoid dehydration. no sudden positio n change. encouraged stop smoking. please call again if new question. Chart reviewed I have spent more than 50% educating patient about potential diagnosis and neurological evaluation and coordinating care with patient's treatment team. Total time spent (including chart review and coordination of care): 60 min (this includes chart review). Results & Data Vital Signs (Past 12 Hours) Vital Signs Temp Pulse Pulse Resp BP BP Pulse Ox 08/18/23 08:00 37.2 C 16 08/18/23 07:00 78 08/18/23 04:50 73 08/18/23 04:26 08/18/23 04:23 36.6 C 72 160/88 H 94 08/18/23 03:00 79 20 175/100 H 95 08/18/23 02:30 70 19 150/82 H 98 08/18/23 02:25 71 08/18/23 02:00 08/18/23 02:00 36.5 C 08/18/23 01:00 73 23 181/105 H 96 08/18/23 00:30 66 18 146/93 H 96 08/17/23 23:30 70 21 154/92 H 98 O2 Del Method O2 Flow Rate 08/18/23 08:00 08/18/23 07:00 08/18/23 04:50 08/18/23 04:26 Nasal Cannula 1 08/18/23 04:23 Nasal Cannula 1 08/18/23 03:00 Nasal Cannula 1 08/18/23 02:30 Room Air 08/18/23 02:25 08/18/23 02:00 Nasal Cannula 1 08/18/23 02:00 08/18/23 01:00 Nasal Cannula 1 08/18/23 00:30 Nasal Cannula 1 04/05/24 23:30 Nasal Cannula 1 PG Care Time/CCT Total # of Minutes Spent Total Time Spent with Patient: Total time spent is greater than 50% in coordination of care (as documented) at patient's floor/unit and/or counseling patient: Coding Level of Care Code 06399 IN/OBS CONSULT LVL 4,60M Diagnoses Ischemic stroke I63.9
[2023-08-18] MEDS: CLOPIDOGREL BISULFATE 75 MG TAB PO SCH (13:40)
--- NOTE | 2023-08-18 15:45 | Magnetic Resonance Report ---
MR brain wo con CLINICAL HISTORY: stroke-like symptoms TECHNIQUE: Multiplanar and multisequence MR images of the brain were obtained without intravenous con trast. Comparison: None available at the time of this dictation. FINDINGS: No abnormal restricted diffusion is identified. Foci of T2 and FLAIR hyperintensity are noted in the paraventricular areas consistent with chronic small vessel ischemic disease. The ventricular system i s normal in appearance. No mass is seen. There is no mass effect or midline shift. There is no eviden ce of acute intraparenchymal hemorrhage. No extra axial fluid collections are seen. The corpus callos um, pituitary gland, and cerebellar tonsils appear grossly unremarkable. Flow voids of the major intracranial arterial vessels are identified. The imaged portions of the para nasal sinuses, mastoid air cells, and orbits are unremarkable. IMPRESSION: No acute abnormalities. ACT 112: Negative or not required by law. Electronically signed by: Omid Mcnamara M.D. 08/18/2023 3:42 PM
--- NOTE | 2023-08-18 22:52 | XCELERA ---
[id number] \\[id number]
[2023-08-19 04:29] LABS: Basophils # (auto) 0.09 K/uL (0.00-0.20); Basophils % (auto) 1.3 %; Eosinophils # (auto) 0.13 K/uL (0.00-0.50); Eosinophils % (auto) 1.9 %; Hematocrit (blood only) 38.4 % (37.0-47.0); Hemoglobin 12.3 g/dl (12.0-16.0); Immature Granulocytes # (auto) 0.03 K/uL (0.01-0.20); Immature Granulocytes % (auto) 0.4 %; Lymphocytes # (auto) 1.75 K/uL (1.20-3.40); Lymphocytes % (auto) 25.6 %; Mean Corpuscular Hemoglobin 29.6 pg (25.0-34.0); Mean Corpuscular Volume 92.5 fL (80.0-100.0); Mean Platelet Volume 9.5 fL (9.4-12.4); Monocytes # (auto) 0.82 K/uL (0.11-0.59); Neutrophils # (auto) 4.02 K/uL (1.40-6.50); Neutrophils % (auto) 58.8 %; Platelet Count 311 K/uL (130-400); RDW Coefficient of Variation 13.4 % (11.5-14.5); RDW Standard Deviation 45.7 fL (36.4-46.3); Red Blood Count 4.15 M/uL (4.20-5.40); White Blood Count 6.84 K/ul (4.8-10.8)
[2023-08-19 04:46] LABS: BUN Creatinine Ratio 16.5 (10-20); Calcium 8.9 mg/dl (8.6-10.3); Est GFR (African American) 84.9 ml/min; Est GFR (Non-African American) 73.2 ml/min; Potassium 4.1 mmol/L (3.5-5.1)
[2023-08-19] MEDS: ATORVASTATIN 40 MG TAB PO SCH (08:30)
[2023-08-19] MEDS: LOSARTAN POTASSIUM 25 MG TAB PO SCH (12:46)
[2023-08-19] MEDS ORDERED: STROKE PATIENT DISCHARGE STA (13:31)
--- NOTE | 2023-08-19 15:08 | Discharge Summary ---
Date of Service August 19, 2023 Admission HPI Per Admitting Provider The patient is a 77-year-old female with no significant past medical history other than right wrist fracture, and 60-year tobacco use history. She presents to the emergency department with symptoms as noted above. She denies any recent travels or sick exposures. She denies any associated respiratory GI or urinary type symptoms. She has not had any previous symptoms of gait instability, but also reportedly does not regularly physically active. She has not had any recent weight loss Admission Exam Per Admitting Provider The patient is awake, alert and oriented 3, appears relatively thin, normocephalic and atraumatic, lying in bed and in no acute distress. HEENT--PERRL, EOMI, mucous membranes and oropharynx mildly dry. Neck--supple. No JVD. No bruits. Thyroid normal, trachea midline, no adenopathy. Heart--normal S1 and S2. No murmurs, rubs or gallops. Lungs--clear bilaterally, but decreased breath sounds throughout. No respir atory distress, no accessory muscle use. Abdomen--normal bowel sounds and soft. Nontender. Nondistended, no hernias or masses, no organomegaly. Extremities--No edema. Dermatologic--normal skin turgor, normal color, no abnormal lymph nodes, no rash. Neurologic--cranial nerves II through XII grossly intact. Rheumatologic--normal range of motion. Psychiatric--normal affect. Principal Diagnosis Strokelike symptoms/TIA Discharge Exam General: No acute distress HEENT: PERRLA. Normal conjunctiva, anicteric sclera. Oropharynx normal. Respiratory: Normal respiratory effort, CTABL. Cardiovascular: Irregularly irregular rhythm. No murmurs, gallops, or rubs. No pedal edema. Neuro: Alert and oriented x3. Discharge Data Allergies Allergy/AdvReac Type Severity Reaction Status Date / Time No Known Allergies Allergy Unverified 12/24/19 10:00 Consultations 08/18/23 00:54 ED Decision to Admit Stat 08/18/23 06:33 Consult Neurology Routine Ordered Studies 08/17/23 22:30 CT head/brain wo con Stat 08/18/23 01:45 CTA head w con [CT angio head w con] Stat CTA neck with con [CT angio neck with con] Stat 08/18/23 04:09 MR brain wo con Routine Hospital Course (1) Altered mental status: 77 F with no routine primary care or managed chronic conditions, who presented to the hospital after episodic dizziness and confusion. Now admitted for stroke workup. Currently stable. AMS/ischemic stroke -CT brain negative for acute ischemic or hemorrhagic process. 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 -CTA neck: Moderate proximal left ICA stenosis. -MRI brain - per neurologist read: subtle change in central midbrain area highly suspicious for ischemic lesion -Total cholesterol 251. LDL-166, HDL-71. Cholesterol/HDL ratio-3.5 -Echocardiogram: Normal LV size with hyperdynamic systolic function. EF >70%. No regional wall motion. Sclerotic aortic valve w/o significant stenosis. -S/p aspirin 324 mg, heparin drip on admission. -Added olmesartan 10 mg daily for BP management -DAPT: Aspirin 81 mg daily, Plavix 75 mg daily x 21 days. Continue either ASA or Plavix after 21 days (follow-up with neurology) -Atorvastatin 80 mg daily -PT/OT: Stable for discharge home with home PT. Case management unable to set up home PT as patient does not have regular PCP. -Discussed with patient and her daughters: Recommended establishing care at [facility]. PCP to order home PT at follow-up visit. -Outpatient neurology f/u Moderate left proximal ICA stenosis - antiplatelet, statin. will need f/u scans Hyperlipidemia/Hypertension - see above Emphysema - noted on CXR. ~ 60 maria elena year smoking. -Mildly hypoxic on admission. Received DuoNebs. 95% on RA at discharge. * Recommend outpatient f/u with pcp Tobacco Use Disorder * Cessation counseling (2) Fatigue: (3) Gait instability: (4) Lethargy: (5) Tobacco use disorder: (6) Emphysema lung: Total Time Total Time Spent Total Time Spent (In Minutes): Please see attending attestation. Discharge Plan Discharge Items Patient Disposition: Home - Self-Care Reason For Visit: ALTERED MENTAL STATUS, GAIT INSTABILITY Discharge Diagnosis: Altered mental status/transient ischemic stroke Activity: Per Instructions section Non-emergency contact: Primary Care Provider and Neurologist Call non-emergency contact if: you have any medication questions and your pain is not controlled Follow-up/Referrals: Werner Larios MD [Resident] - Ata Catherine MD [Physician] - PCP,NO [Primary Care Provider] - Diet: Regular Addtl Attending Provider Instructions: Dear Stacie, You were brought to the hospital by your family because of a sudden, concerning episode of confusion. You were admitted to the hospital for further evaluation of your symptoms. We took images of your brain using multiple scans and did not find any sign of an acute or chronic cerebrovascular ischemia, also known as a stroke. You were also evaluated by our neurology specialist, who recommended that you start taking preventative stroke medications, which we started while you were in the hospital. We also discovered that your cholesterol was elevated and we started you on medications to treat it. Now that you have recovered clinically and has been evaluated by our physical therapist, we feel that you are ready to be safely discharged home. 1. Stroke-like symptoms: We are sending 2 medications to your pharmacy. Take both of these medications daily for the next 3 weeks, unless otherwise directed to by your primary care physician. * Aspirin 81 mg. Please take 1 tablet daily for 21 days. * Clopidogrel (Plavix) 75 mg. Please take 1 tablet daily for 21 days. * Your primary care physician or neurologist will stop either of these medications after 21 days and will likely continue the other indefinitely. 2. Elevated blood pressure: To help protect your brain from another potential strokelike event, we are prescribing you medication to control your blood pressure. Please take as directed below, unless otherwise instructed to by your primary care physician. * Olmesartan 10 mg. Please take 1 tablet daily. You may stop taking it if you become lightheaded when standing, or lose consciousness, after starting this medication. * You should also purchase a blood pressure cuff, if you not already own one, in order to check your blood pressure should you ever become symptomatic. If your blood pressures are consistently lower than 90/60, stop taking the medication and make an appointment with your primary care physician to be evaluated. 3. Hyperlipidemia (high cholesterol): We sent 1 medication to your pharmacy. * Atorvastatin 80 mg. Please take 1 tablet daily. Do not stop taking it unless you are otherwise instructed to by your primary care physician. * You should also have your cholesterol levels rechecked after 3 months of being on this medication. 4. It is important that you follow-up with your primary care physician within 7-14 days. Our hospital schedulers will make an appointment with Dr. Larios and contact you to schedule a visit. If you do not hear from Dr. Larios's clinic in the next 3-5 business days, you may contact his clinic ([facility]) at [phone] to make an appointment. Inform the traveling storekeeper that you would like to schedule a hospital follow-up visit. 5. You should also follow-up with neurology within the next month. Our hospital schedulers will make an appointment for you with Dr. Catherine. If you have not heard back about an appointment after a week from your discharge, call his clinic office at [phone]. Inform the clinic staff that you would like to schedule an outpatient follow-up visit. 6. You were evaluated by our physical therapists, who recommended that you undergo physical therapy at home. As you did not have a primary care physician on file, our case management social worker were unable to set up home physical therapy. Therefore, your primary care physician will have to order home physical therapy at your follow-up visit. Please confirm that a home physical therapy referral is ordered at your follow-up visit. 7. If you ever experience sudden confusion, dizziness, or loss of consciousness before your follow-up visit, you should head to the emergency room immediately for evaluation. It has been our pleasure to care for you here at [facility]. If you have any questions or concerns about your care, please contact us at [phone]. Pending Studies at Discharge: No Stand-Alone Forms: My [facility], Smoking Cessation, Medications to Prevent Stroke Medications and DC Order Prescriptions: New atorvastatin 40 mg Tablet 80 mg PO QAM 30 Days Qty: 60 0RF clopidogrel 75 mg Tablet 75 mg PO QAM 30 Days Qty: 30 0RF aspirin 81 mg capsule 81 mg PO DAILY 30 Days Qty: 30 0RF olmesartan 5 mg tablet 10 mg PO DAILY 30 Days Qty: 60 0RF Discharge Orders: Discharge Order (Routine); Ordered 08/19/23 Ordered By: Werner Larios Admission Data Admit Date/Time: 08/18/23 01:52 Attending Provider: Shawanda Colbert Admit Provider: Brayan Lorenzo Primary Care Provider: PCP,NO Other Providers: Brayan Lorenzo; Ata Catherine Other Interventions: Discharge Summary Assessment (RN) Last Done: 08/19/23 14:05 Supervising Physician Co-Signing Physician Notes Attending Physician Supervision Note: I independently interviewed and examined the patient and verified the rivera history and physical, reviewed labs and image studies and agree with findings and care plan noted above. Resident Activity Tracking Resident Involvement: Resident Care Provided Care Provided: Adult Hospital Medicine
== END 2023-08-19 16:30 | disposition home or self-care (01) ==
LOC: 4W 21:35 → ED 21:35 → SUATTDRO 08-18 01:52 → 4W 08-18 03:26

== ENCOUNTER 2024-03-25 16:03 | Observation (INO) ==
[2024-03-25 16:49] LABS: Basophils # (auto) 0.11 K/uL (0.00-0.20); Eosinophils # (auto) 0.26 K/uL (0.00-0.50); Eosinophils % (auto) 2.5 %; Hemoglobin 12.2 g/dl (12.0-16.0); Immature Granulocytes # (auto) 0.06 K/uL (0.01-0.20); Immature Granulocytes % (auto) 0.6 %; Lymphocytes # (auto) 2.59 K/uL (1.20-3.40); Lymphocytes % (auto) 24.7 %; Mean Corpuscular Hgb Conc 31.3 g/dL (32.0-36.0); Mean Corpuscular Volume 92.9 fL (80.0-100.0); Mean Platelet Volume 9.8 fL (9.4-12.4); Monocytes # (auto) 1.08 K/uL (0.11-0.59); Monocytes % (auto) 10.3 %; Neutrophils # (auto) 6.39 K/uL (1.40-6.50); Neutrophils % (auto) 60.9 %; Platelet Count 309 K/uL (130-400); RDW Coefficient of Variation 14.7 % (11.5-14.5); RDW Standard Deviation 50.3 fL (36.4-46.3); White Blood Count 10.49 K/ul (4.8-10.8)
--- NOTE | 2024-03-25 16:54 | Emergency Department Note ---
Impression & Plan Dizziness ED Provider Note Provider: Sachin Calloway MD DATE OF SERVICE: 03/25/2024 CHIEF COMPLAINT: Slight headache, dizziness earlier HISTORY OF PRESENT ILLNESS: Patient is a 78-year-old female history of CVA/TIA in the past and emphysema presenting here today referred from the primary doctor's office. Patient evidently last night around 8 or 8:30 PM while laying in bed woke up and felt quite dizzy like things were moving. Did not feel like she is get a pass out. Laid in bed and on and off slept overnight having the sensation. Little bit of bilateral temporal head pain. No dizziness this morning of the rest of today. No speech issues. Has been having intermittently some bilateral temporal head pain. No syncope or trauma. No numbness or tingling. Again no dizziness today. No recent significant cough or cold symptoms reported. No abdominal pain or nausea or vomiting reported. Daughters did reach out to the primary doctor's office who given her complaints told her to come in for evaluation here. In the spring the patient had little bit of a similar episode of though much more persistent and severe during which time she was diagnosed with a possible stroke. Patient has been taking her aspirin. Patient denies when she felt dizzy that she had any issues with turning the head. PAST MEDICAL HISTORY: As noted above MEDICATIONS: Reviewed home medications SOCIAL HISTORY: Former smoker PHYSICAL EXAM: GENERAL: alert and oriented in no acute distress on stretcher Head: normocephalic and atraumatic EYES: No injection, discharge or icterus. PERRL, EOMI. NECK: Trachea midline. Supple with good range of motion ENT: Mucous membranes pink and moist. Pharynx without erythema or exudate. LUNGS: Airway patent. No retractions. Breath sounds clear with good air entry bilaterally. HEART: Regular rate and rhythm. No chest wall tenderness ABDOMEN: Soft and non-tender, without guarding or rebound. SKIN: Acyanotic, warm, dry, without rashes EXTREMITIES: Without swelling, tenderness or deformity NEUROLOGICAL: No focal deficits. No aphasia. No facial droop or slurred speech. Normal strength and tone in the extremities. Sensation to gross touch normal. Ambulatory. EK bpm sinus rhythm with PAC. No acute ST segment elevation or depression with a QTc of 498 left axis. Mildly prominent anterior T waves. CONTINUOUS CARDIAC MONITORING: was ordered and showed a heart rate of 60s 70s bpm in normal sinus rhythm Patient's laboratory studies and imaging reviewed. Differential includes Migraine headache, meningitis, sinusitis, ICH, SAH, infection, tumor, headache, sinus thrombosis, arterial dissection, GCA, as well as other pathologies. IMPRESSION/MEDICAL DECISION MAKING: Patient well-appearing at this time. States he really does not have much of a headache now. Denies any dizziness today but had some overnight/last night. Does not seem that provokable with movement. No numbness or speech issues or other motor weakness reported. Does have a history of TIA versus CVA in the past of review of notes and neurology notes. Patient is on aspirin. No acute visual changes reported or eye pain. Doubt this represents GCA. COVID checked but denies significant fever or URI symptoms. Does not seem meningitic. 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 Blood work here without significant bleeding or leukocytosis. Normal platelet count. Negative COVID test. Electrolytes without significant abnormality. Normal kidney function. Normal BUN. Bilirubin normal but AST ALT just slightly elevated 148/147 and alkaline phosphatase dilated 331. Normal troponin. Will complete abdominal CT to exclude any other obvious liver pathology while she is getting her CT of the head and CT angiograms. CT head and CT angiograms head and neck showed 50% stenosis of left ICA no other significant vascular abnormality evidence of intracranial bleed reported. CT of the abdomen pelvis without acute findings. In for renal abdominal aortic aneurysm as well as some focal small saccular aneurysm right common iliac are noted. Some mild infectious findings in the lung bases but the patient does not have exhibited respiratory complaints. Discussed with patient and family findings. She not have recurrence of symptoms here. Will need further monitoring and follow-up regarding the very mild LFT elevations but do believe this is related to her complaints of dizziness overnight and some headache. Discussed with patient and family at this time options. Discussed continued outpatient follow-up versus inpatient observation to debride further workup. In shared decision making she felt less couple staying in ensuring there is no CVA with MRI. Daughters agree. Hospitalist contacted. DIAGNOSIS: Headache, dizziness DISPOSITION: Hospitalist will evaluate Patient was agreeable with this plan. 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 Required: No Beliefs That Will Affect Care: None Current Living Situation: Family Current Living Situation Comment: with daughter dawood Feels Safe at Home: Yes Assistive Devices: None Allergies Allergies Allergy/AdvReac Type Severity Reaction Status Date / Time No Known Allergies Allergy Unverified 12/24/19 10:00 Home Meds Home Medications Medication Instructions Recorded Confirmed Aspir-81 81 mg PO QAM 03/25/24 03/25/24 atorvastatin 80 mg tablet 80 mg PO DAILY 03/25/24 03/25/24 olmesartan 5 mg tablet 5 mg PO DAILY 03/25/24 03/25/24 Results & Data (ED) Vital Signs Vital Signs - 24 hr 03/25/24 16:12 03/25/24 16:19 03/25/24 16:28 Temperature 36.6 C Temperature Source Temporal Artery Scan Pulse Rate 72 73 Pulse Rate [Right Finger] 86 Pulse Rhythm Pulse Rhythm [Right Finger] Regular Pulse Strength [Right Finger] Normal Respiratory Rate 16 28 H Respiratory Effort / Characteristics Non-Labored Spontaneous Non-Labored Respiratory Depth Normal Normal Respiratory Pattern Regular Blood Pressure 139/83 Blood Pressure [Left Arm] 159/86 H Blood Pressure Mean 101 Blood Pressure Mean [Left Arm] 110 Blood Pressure Position [Left Arm] Lying Pulse Oximetry 100 97 Oxygen Delivery Method Room Air Room Air Sepsis Recent Fever Within 48 Hours No Sepsis New/Unexplained Change in Mental Status No Sepsis Action Taken by Nursing No Action Required 03/25/24 16:29 03/25/24 18:20 03/25/24 19:07 Temperature Temperature Source Pulse Rate 75 Pulse Rate [Right Finger] 78 72 Pulse Rhythm Regular Pulse Rhythm [Right Finger] Regular Regular Pulse Strength [Right Finger] Normal Normal Respiratory Rate 29 H 22 22 Respiratory Effort / Characteristics Non-Labored Non-Labored Respiratory Depth Normal Normal Respiratory Pattern Regular Regular Blood Pressure Blood Pressure [Left Arm] 134/80 134/96 Blood Pressure Mean Blood Pressure Mean [Left Arm] 98 108 Blood Pressure Position [Left Arm] Lying Lying Pulse Oximetry 94 94 93 Oxygen Delivery Method Room Air Room Air Room Air Sepsis Recent Fever Within 48 Hours Sepsis New/Unexplained Change in Mental Status Sepsis Action Taken by Nursing Laboratory Data 03/25/24 16:34 03/25/24 16:34 Lab Results 03/25/24 03/25/24 03/25/24 Range/Units 16:34 16:38 19:24 WBC 10.49 (4.8-10.8) K/ul RBC 4.20 (4.20-5.40) M/uL Hgb 12.2 (12.0-16.0) g/dl Hct 39.0 (37.0-47.0) % MCV 92.9 (80.0-100.0) fL MCH 29.0 (25.0-34.0) pg MCHC 31.3 L (32.0-36.0) g/dL RDW Std Deviation 50.3 H (36.4-46.3) fL RDW Coeff of Sammy 14.7 H (11.5-14.5) % Plt Count 309 (130-400) K/uL MPV 9.8 (9.4-12.4) fL Immature Gran % (Auto) 0.6 % Neut % (Auto) 60.9 % Lymph % (Auto) 24.7 % [place] % (Auto) 10.3 % Eos % (Auto) 2.5 % Baso % (Auto) 1.0 % Neut # (Auto) 6.39 (1.40-6.50) K/uL Lymph # (Auto) 2.59 (1.20-3.40) K/uL [place] # (Auto) 1.08 H (0.11-0.59) K/uL Eos # (Auto) 0.26 (0.00-0.50) K/uL Baso # (Auto) 0.11 (0.00-0.20) K/uL Immature Gran # (Auto) 0.06 (0.01-0.20) K/uL PT 10.9 (9.0-12.0) Seconds INR 1.0 (0.9-1.1) Sodium 136 (136-145) mmol/L Potassium 4.7 (3.5-5.1) mmol/L Chloride 100 (98-107) mmol/L Carbon Dioxide 27 (21-32) mmol/L Anion Gap 9 (3-11) BUN 19 (6-23) mg/dl Creatinine 0.98 (0.6-1.2) mg/dl Est Cr Clr Drug Dosing 29.5 ml/min eGFR 59.82 BUN/Creatinine Ratio 19.4 (10-20) Glucose 100 H (70-99(Fasting)) mg/dl Calcium 9.5 (8.6-10.3) mg/dl Total Bilirubin 0.6 (0.2-1.0) mg/dl AST 148 H (13-39) U/L ALT 147 H (7-52) U/L Alkaline Phosphatase 331 H (34-104) U/L Troponin I High Sens 7.7 (0-14) pg/ml Total Protein 7.8 (6.0-8.3) gm/dl Albumin 3.8 (3.4-5.0) gm/dl Globulin 4.0 (2.5-4.0) gm/dl Albumin/Globulin Ratio 1.0 (0.9-2) Urine Color Yellow Urine Appearance Clear (Clear) Urine pH 6.5 (4.5-7.5) Ur Specific [place] 1.036 H (1.000-1.030) Urine Protein Negative (Negative) Urine Glucose (UA) Negative (Negative) Urine Ketones Negative (Negative) Urine Blood Negative (Negative) Urine Nitrite Negative (Negative) Urine Bilirubin Negative (Negative) Urine Urobilinogen Negative (Negative) Ur Leukocyte Esterase Negative (Negative) SARS-CoV-2, RNA, NAAT NEGATIVE (NEGATIVE) Administered Medications Discontinued Medications Ioversol (Optiray 320 125ml) 119 ml IV ONCE ONE Stop: 03/25/24 17:56 Last Admin: 03/25/24 17:57 Dose: 119 ml Documented By: PLW Imaging Data Radiologist's Impression: Head CT 03/25/24 16:[address] without contrast CT angiogram of the neck CT angiogram of the brain with contrast Provided History: Neuro deficit Comparison: None Technique: HEAD CT: Using multidetector thin collimation helical acquisition technique, axial, coronal and sagittal CT images from the skull base to the vertex were obtained without intravenous contrast. HEAD and NECK CTA: During rapid bolus intravenous injection of nonionic contrast material, axial images were obtained using thin collimation multidetector helical technique from the base of the neck through the Vertex of vertex of the head. This CT angiogram data was reconstructed at thin intervals with mild overlap. 3D reconstructions were obtained. The axial source images, multiplanar reformations, 3D reconstructions in both maximum intensity projection display and volume rendered models were reviewed. Dose reduction techniques were achieved by using automatic exposure control and/or adjustment of mA and/or kV according to patient size and/or use of iterative reconstruction technique. Findings: Head CT: There is no intracranial hemorrhage, mass effect, or midline shift. Lamb/white matter differentiation in both cerebral hemispheres is preserved. Ventricles are proportionate to the cerebral sulci. There is moderate cerebral atrophy. Moderate, patchy low-attenuation changes in the white matter, most suggestive of sequelae of chronic small vessel ischemic disease. Head CTA demonstrates no aneurysm or stenosis of the major intracranial arteries. Neck CTA demonstrates patent distal internal carotid arteries. There is mixed atherosclerotic plaque at the carotid bulbs bilaterally. At the proximal left ICA as well there is an area of prominent calcified and noncalcified atherosclerotic plaque, resulting in focal, approximately 50% stenosis. No hemodynamically significant stenosis of the proximal right ICA. Vertebral arteries are patent. The origins of the great vessels from the aortic arch are patent. The normal distal right internal carotid artery measures 5 mm. The normal distal left internal carotid artery measures 5 mm. No mass is noted within the visualized portions of the cervical soft tissues or lung apices. The lungs are severely emphysematous. Impression: 1. Head CTA demonstrates no aneurysm or stenosis of the major intracranial arteries, 2. Neck CTA demonstrates focal, approximately 50% stenosis at the proximal left ICA related to mixed plaque. Otherwise the distal internal carotid arteries are widely patent. 3. No intracranial hemorrhage on the noncontrast head CT. The study was analyzed using artificial intelligence software for large vessel occlusion detection. Electronically signed by Jian Morin 03-25-2024 6:20 PM Head CTA 03/25/24 16:[address] without contrast CT angiogram of the neck CT angiogram of the brain with contrast Provided History: Neuro deficit Comparison: None Technique: HEAD CT: Using multidetector thin collimation helical acquisition technique, axial, coronal and sagittal CT images from the skull base to the vertex were obtained without intravenous contrast. HEAD and NECK CTA: During rapid bolus intravenous injection of nonionic contrast material, axial images were obtained using thin collimation multidetector helical technique from the base of the neck through the Vertex of vertex of the head. This CT angiogram data was reconstructed at thin intervals with mild overlap. 3D reconstructions were obtained. The axial source images, multiplanar reformations, 3D reconstructions in both maximum intensity projection display and volume rendered models were reviewed. Dose reduction techniques were achieved by using automatic exposure control and/or adjustment of mA and/or kV according to patient size and/or use of iterative reconstruction technique. Findings: Head CT: There is no intracranial hemorrhage, mass effect, or midline shift. Lamb/white matter differentiation in both cerebral hemispheres is preserved. Ventricles are proportionate to the cerebral sulci. There is moderate cerebral atrophy. Moderate, patchy low-attenuation changes in the white matter, most suggestive of sequelae of chronic small vessel ischemic disease. Head CTA demonstrates no aneurysm or stenosis of the major intracranial arteries. Neck CTA demonstrates patent distal internal carotid arteries. There is mixed atherosclerotic plaque at the carotid bulbs bilaterally. At the proximal left ICA as well there is an area of prominent calcified and noncalcified atherosclerotic plaque, resulting in focal, approximately 50% stenosis. No hemodynamically significant stenosis of the proximal right ICA. Vertebral arteries are patent. The origins of the great vessels from the aortic arch are patent. The normal distal right internal carotid artery measures 5 mm. The normal distal left internal carotid artery measures 5 mm. No mass is noted within the visualized portions of the cervical soft tissues or lung apices. The lungs are severely emphysematous. Impression: 1. Head CTA demonstrates no aneurysm or stenosis of the major intracranial arteries, 2. Neck CTA demonstrates focal, approximately 50% stenosis at the proximal left ICA related to mixed plaque. Otherwise the distal internal carotid arteries are widely patent. 3. No intracranial hemorrhage on the noncontrast head CT. The study was analyzed using artificial intelligence software for large vessel occlusion detection. Electronically signed by Jian Morin 03-25-2024 6:20 PM Neck CTA 03/25/24 16:[address] without contrast CT angiogram of the neck CT angiogram of the brain with contrast Provided History: Neuro deficit Comparison: None Technique: HEAD CT: Using multidetector thin collimation helical acquisition technique, axial, coronal and sagittal CT images from the skull base to the vertex were obtained without intravenous contrast. HEAD and NECK CTA: During rapid bolus intravenous injection of nonionic contrast material, axial images were obtained using thin collimation multidetector helical technique from the base of the neck through the Vertex of vertex of the head. This CT angiogram data was reconstructed at thin intervals with mild overlap. 3D reconstructions were obtained. The axial source images, multiplanar reformations, 3D reconstructions in both maximum intensity projection display and volume rendered models were reviewed. Dose reduction techniques were achieved by using automatic exposure control and/or adjustment of mA and/or kV according to patient size and/or use of iterative reconstruction technique. Findings: Head CT: There is no intracranial hemorrhage, mass effect, or midline shift. Lamb/white matter differentiation in both cerebral hemispheres is preserved. Ventricles are proportionate to the cerebral sulci. There is moderate cerebral atrophy. Moderate, patchy low-attenuation changes in the white matter, most suggestive of sequelae of chronic small vessel ischemic disease. Head CTA demonstrates no aneurysm or stenosis of the major intracranial arteries. Neck CTA demonstrates patent distal internal carotid arteries. There is mixed atherosclerotic plaque at the carotid bulbs bilaterally. At the proximal left ICA as well there is an area of prominent calcified and noncalcified atherosclerotic plaque, resulting in focal, approximately 50% stenosis. No hemodynamically significant stenosis of the proximal right ICA. Vertebral arteries are patent. The origins of the great vessels from the aortic arch are patent. The normal distal right internal carotid artery measures 5 mm. The normal distal left internal carotid artery measures 5 mm. No mass is noted within the visualized portions of the cervical soft tissues or lung apices. The lungs are severely emphysematous. Impression: 1. Head CTA demonstrates no aneurysm or stenosis of the major intracranial arteries, 2. Neck CTA demonstrates focal, approximately 50% stenosis at the proximal left ICA related to mixed plaque. Otherwise the distal internal carotid arteries are widely patent. 3. No intracranial hemorrhage on the noncontrast head CT. The study was analyzed using artificial intelligence software for large vessel occlusion detection. Electronically signed by Jian Morin 03-25-2024 6:20 PM Abdomen/Pelvis CT 03/25/24 17:34 EXAMINATION: CT of the abdomen and pelvis performed after the administration of IV contrast TECHNIQUE: Helical CT images from the lung bases through the symphysis pubis were obtained with contrast. Coronal and sagittal reformatted images were generated at a workstation for further assessment. Dose reduction techniques were achieved by using automatic exposure control and/or adjustment of mA and/or kV according to patient size and/or use of iterative reconstruction technique. COMPARISON: None HISTORY: Abdominal pain FINDINGS: Lower chest: No consolidation. No pleural effusion or pneumothorax. Mild scattered focal nodular densities throughout the periphery of the lung bases, left greater than right, compatible with infectious bronchiolitis. The lungs are emphysematous. Liver: No suspicious liver lesions. Portal veins appear patent. Gallbladder: No gallstones. No evidence of acute cholecystitis. Spleen: Normal size. Pancreas: No suspicious pancreatic lesions. The pancreatic duct is not dilated. Adrenal glands: No adrenal nodules. Kidneys: No hydronephrosis or obstructing renal stones. Bladder / Pelvic organs: Unremarkable. Bowel: No bowel obstruction. No abnormal bowel wall thickening. The appendix is unremarkable. Lymph nodes: No retroperitoneal, mesenteric, or pelvic lymphadenopathy. Peritoneum / Retroperitoneum: No free fluid or air within the abdomen. Vessels: Infrarenal fusiform abdominal aortic aneurysm, measuring up to 4.1 x 3.6 cm. There is eccentric noncalcified atheroma within the aneurysm, and a central enhancing lumen, measuring as small as 1.6 cm. Heavily calcified common iliac arteries. There is a focal, saccular nonenhancing aneurysm filled with noncalcified atheromatous disease measuring 1.5 cm of the right common iliac artery. Bones and soft tissues: No suspicious lesion in the bones. Osteopenia. Degenerative changes of the lumbar spine. Grade 1 L4 anterolisthesis. IMPRESSION: No acute finding in the abdomen or pelvis. Infrarenal abdominal aortic aneurysm. 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 Mild infectious bronchiolitis seen in the lung bases. Electronically signed by Jian Morin 03-25-2024 6:20 PM Discharge Plan Visit Data Chief Complaint: Dizziness Stated Complaint: REF BY DOC,DIZZINESS,HEADACHE,MINOR STROKE ED Provider: Sachin Calloway Discharge Problem: Dizziness Patient Disposition: Being Evaluated by Hospitalist Forms Stand Alone Forms: [employer] Prescriptions Prescriptions: No Action atorvastatin 80 mg tablet 80 mg PO DAILY olmesartan 5 mg tablet 5 mg PO DAILY Aspir-81 81 mg PO QAM Referrals Referrals: PCP,NO [Primary Care Provider] -
[2024-03-25 17:06] LABS: Albumin Level 3.8 gm/dl (3.4-5.0); BUN Creatinine Ratio 19.4 (10-20); Bilirubin,Total 0.6 mg/dl (0.2-1.0); Calcium 9.5 mg/dl (8.6-10.3); Creatinine Clr Calc Pharmacy 29.5 ml/min; Potassium 4.7 mmol/L (3.5-5.1); Total Protein 7.8 gm/dl (6.0-8.3)
[2024-03-25 17:09] LABS: Troponin I High Sensitivity 7.7 pg/ml (0-14)
[2024-03-25 17:11] LABS: Prothrombin Time 10.9 Seconds (9.0-12.0)
[2024-03-25] MEDS: OPTIRAY 320 125ml IV ONE (17:57)
--- NOTE | 2024-03-25 18:21 | CT Scan Report ---
Head CT without contrast CT angiogram of the neck CT angiogram of the brain with contrast Provided History: Neuro deficit Comparison: None Technique: HEAD CT: Using multidetector thin collimation helical acquisition technique, axial, coronal and sagittal CT images from the skull base to the vertex were obtained without intravenous contrast. HEAD and NECK CTA: During rapid bolus intravenous injection of nonionic contrast material, axial images were obtained using thin collimation multidetector helical technique from the base of the neck through the Vertex of vertex of the head. This CT angiogram data was reconstructed at thin intervals with mild overlap. 3D reconstructions were obtained. The axial source images, multiplanar reformations, 3D reconstructions in both maximum intensity projection display and volume rendered models were reviewed. Dose reduction techniques were achieved by using automatic exposure control and/or adjustment of mA and/or kV according to patient size and/or use of iterative reconstruction technique. Findings: Head CT: There is no intracranial hemorrhage, mass effect, or midline shift. Lamb/white matter differentiation in both cerebral hemispheres is preserved. Ventricles are proportionate to the cerebral sulci. There is moderate cerebral atrophy. Moderate, patchy low-attenuation changes in the white matter, most suggestive of sequelae of chronic small vessel ischemic disease. Head CTA demonstrates no aneurysm or stenosis of the major intracranial arteries. Neck CTA demonstrates patent distal internal carotid arteries. There is mixed atherosclerotic plaque at the carotid bulbs bilaterally. At the proximal left ICA as well there is an area of prominent calcified and noncalcified atherosclerotic plaque, resulting in focal, approximately 50% stenosis. No hemodynamically significant stenosis of the proximal right ICA. Vertebral arteries are patent. The origins of the great vessels from the aortic arch are patent. The normal distal right internal carotid artery measures 5 mm. The normal distal left internal carotid artery measures 5 mm. No mass is noted within the visualized portions of the cervical soft tissues or lung apices. The lungs are severely emphysematous. Impression: 1. Head CTA demonstrates no aneurysm or stenosis of the major intracranial arteries, 2. Neck CTA demonstrates focal, approximately 50% stenosis at the proximal left ICA related to mixed plaque. Otherwise the distal internal carotid arteries are widely patent. 3. No intracranial hemorrhage on the noncontrast head CT. The study was analyzed using artificial intelligence software for large vessel occlusion detection. Electronically signed by Jian Morin 03-25-2024 6:20 PM
--- NOTE | 2024-03-25 18:21 | CT Scan Report ---
EXAMINATION: CT of the abdomen and pelvis performed after the administration of IV contrast TECHNIQUE: Helical CT images from the lung bases through the symphysis pubis were obtained with contrast. Coronal and sagittal reformatted images were generated at a workstation for further assessment. Dose reduction techniques were achieved by using automatic exposure control and/or adjustment of mA and/or kV according to patient size and/or use of iterative reconstruction technique. COMPARISON: None HISTORY: Abdominal pain FINDINGS: Lower chest: No consolidation. No pleural effusion or pneumothorax. Mild scattered focal nodular densities throughout the periphery of the lung bases, left greater than right, compatible with infectious bronchiolitis. The lungs are emphysematous. Liver: No suspicious liver lesions. Portal veins appear patent. Gallbladder: No gallstones. No evidence of acute cholecystitis. Spleen: Normal size. Pancreas: No suspicious pancreatic lesions. The pancreatic duct is not dilated. Adrenal glands: No adrenal nodules. Kidneys: No hydronephrosis or obstructing renal stones. Bladder / Pelvic organs: Unremarkable. Bowel: No bowel obstruction. No abnormal bowel wall thickening. The appendix is unremarkable. Lymph nodes: No retroperitoneal, mesenteric, or pelvic lymphadenopathy. Peritoneum / Retroperitoneum: No free fluid or air within the abdomen. Vessels: Infrarenal fusiform abdominal aortic aneurysm, measuring up to 4.1 x 3.6 cm. There is eccentric noncalcified atheroma within the aneurysm, and a central enhancing lumen, measuring as small as 1.6 cm. Heavily calcified common iliac arteries. There is a focal, saccular nonenhancing aneurysm filled with noncalcified atheromatous disease measuring 1.5 cm of the right common iliac artery. Bones and soft tissues: No suspicious lesion in the bones. Osteopenia. Degenerative changes of the lumbar spine. Grade 1 L4 anterolisthesis. IMPRESSION: No acute finding in the abdomen or pelvis. Infrarenal abdominal aortic aneurysm. 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 Mild infectious bronchiolitis seen in the lung bases. Electronically signed by Jian Morin 03-25-2024 6:20 PM
[2024-03-25 19:33] LABS: Appearance Urine Clear (Clear); Bilirubin Urine Negative (Negative); Blood Urine Negative (Negative); Color Urine Yellow; Glucose Urine UA Negative (Negative); Ketones Urine Negative (Negative); Leukocyte Esterase Urine Negative (Negative); Nitrite Urine Negative (Negative); Protein Urine Negative (Negative); Specific Gravity Urine 1.036 (1.000-1.030); Urobilinogen Urine Negative (Negative); pH Urine 6.5 (4.5-7.5)
--- NOTE | 2024-03-25 20:00 | History & Physical Report ---
Date of Service March 25, 2024 Assessment & Plan (1) Dizziness: Plan: 78yo female with history of emphysema, prior CVA presenting with brief episode of visual disturbance, dizziness. Patient presently with no complaints, no further visual changes. No additional neurologic complaints. Her bitemporal headache has since resolved. Labs as above. Patient presented with similar symptoms in August 2023. Workup at that time with normal [id number]=4.8 Lipid panel with elevated total cholesterol =251, TG=72, FUW=736, HLD=71 Echo 08/18/23 with normal LV size and function, EF > 70% with no regional WMA. She was noted to have a sclerotic aortic valve without significant stenosis. Very small right to left interatrial shunt noted following agitated saline administration. Small pericardial effusion without echographic evidence of tamponade physiology. -Observation to medical with telemetry -Neuro checks q 4 hours, NIHSS per protocol -Will repeat HgbA1C and Lipid panel -Continue ASA 81mg po daily -Will change Atorvastatin 80mg po daily to Crestor 20mg po daily due to increased LFTs -Check MRI brain -Consider repeat echo although patient did just have one on 08/18/23. She has a very small left interatrial shunt. She had a small pericardial effusion with no tamponade. Is not displaying any vital sign instability or physical findings of tamponade, no complaints of SOB or chest pain. If patient proves to have a CVA would consider repeat echo and LE doppler -Hold Olmesartan for now to allow for permission hypertension as we rule out acute CVA (2) Abnormal LFTs: Plan: Patient with elevation of SYT=037, QVE=394 and GM=487. No abdominal pain. CT of the abdomen with no acute findings, liver and gallbladder are unremarkable. Patient does not drink EtOH. LFTs were normal on 08/17/23 (AST=16, ALT=8 and AP=79). Possibly secondary to statin use? -Repeat LFTs in AM -Will change Atorvastatin 80mg po daily to Crestor 20mg po daily (3) Bronchiolitis: Plan: Patient noted to have mild infectious bronchiolitis seen in the lung bases. She is afebrile, no report of cough, SOB or wheeze. -CT Chest ordered -Monitor closely for evidence of infection - low threshold to initiate antibiotic therapy with Doxycycline or Azithromycin History of Present Illness Chief Complaint: dizziness Primary Care Provider: NO PCP Stacie Stew is a 78yo female with history of emphysema and prior CVA in August 2023 presenting with dizziness. Patient felt well yesterday with no complaints. She went to bed around 20:00. She fell asleep for a little while then woke up and looked at her wall in her bedroom. She has pictures hanging on the wall and reports that the pictures were spinning around. She denies visual loss, BROWN, numbness, tingling, weakness or other complaints at that time. She went back to sleep and slept on and off through the night with no further issues. Today she has a bitemporal headache but no other complaints. Patient afebrile, HD stable with no acute complaints at present. Allergies Allergy/AdvReac Type Severity Reaction Status Date / Time No Known Allergies Allergy Unverified 12/24/19 10:00 Home Medications Medication Instructions Recorded Confirmed Type Aspir-81 81 mg PO QAM 03/25/24 03/25/24 History atorvastatin 80 mg tablet 80 mg PO DAILY 03/25/24 03/25/24 History olmesartan 5 mg tablet 5 mg PO DAILY 03/25/24 03/25/24 History Past Med/Surg History Problem List (Updated 03/25/24 @ 22:38 by Karoline Salazar DO) Bronchiolitis Abnormal LFTs Dizziness (Acute) TIA (transient ischemic attack) Ataxia (Acute) Hypoxia (Acute) Emphysema of lung (Acute) Acute weakness (Acute) Ischemic stroke Emphysema lung Tobacco use disorder Lethargy Gait instability Fatigue Altered mental status Stiffness of right wrist joint Closed fracture of right distal radius Social History Smoking Status: Former smoker Tobacco Type: Cigarettes Cigarettes Per Day: 1 pack every 2 days; Hx Alcohol Use: No Hx Substance Use: No Preferred Language: Mauritian Communication Ability: Effective 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 Beliefs That Will Affect Care: None Current Living Situation: Other Current Living Situation Comment: home w/ daughter Feels Safe at Home: Yes Safety Concerns: Feels Safe At This Time Assistive Devices: None Review of Systems Review of Systems: All systems reviewed & are unremarkable except as noted in HPI & below Physical Exam Physical Exam: General: patient resting comfortably, NAD, non-toxic in appearance, AA&O x 4 Skin: warm, dry, intact, no rashes or lesions HEENT: NC/AT, PERRL, EOMI, anicteric sclera, conjunctiva without injection, external ear normal to inspection and nontender, nares patent, moist mucus membranes, dentition intact, no oropharyngeal lesions, neck supple, trachea midline, no LAD, no thyromegaly, no JVD Heart: +S1/S2, regular, no m/r/g Lungs: equal air entry bilaterally, no rales/rhonchi/wheezes Abd: +BS, soft, NT/ND, no masses/organomegaly/ascites Ext: warm, 2+ pulses in UE/LE bilaterally, no clubbing/cyanosis or edema Neuro: AA&O x 4, speech intact, CN II - XII grossly intact, sensation to light touch intact, MS 5/5 in UE/LE bilaterally, some dysmetria noted with finger to nose testing, gait not assessed Results & Data Results & Data Vital Signs (Past 12 Hours) Vital Signs Temp Pulse Pulse Resp BP BP Pulse Ox 03/25/24 19:07 72 22 134/96 93 03/25/24 18:20 78 22 134/80 94 03/25/24 16:29 75 29 H 94 03/25/24 16:28 73 03/25/24 16:19 86 28 H 159/86 H 97 03/25/24 16:12 36.6 C 72 16 139/83 100 O2 Del Method 03/25/24 19:07 Room Air 03/25/24 18:20 Room Air 03/25/24 16:29 Room Air 03/25/24 16:28 03/25/24 16:19 Room Air 03/25/24 16:12 Room Air Laboratory Results Laboratory Results WBC 10.49 K/ul (4.8-10.8) 03/25/24 16:34 RBC 4.20 M/uL (4.20-5.40) 03/25/24 16:34 Hgb 12.2 g/dl (12.0-16.0) 03/25/24 16:34 Hct 39.0 % (37.0-47.0) 03/25/24 16:34 MCV 92.9 fL (80.0-100.0) 03/25/24 16:34 MCH 29.0 pg (25.0-34.0) 03/25/24 16:34 MCHC 31.3 g/dL (32.0-36.0) L 03/25/24 16:34 RDW Std Deviation 50.3 fL (36.4-46.3) H 03/25/24 16:34 RDW Coeff of Sammy 14.7 % (11.5-14.5) H 03/25/24 16:34 Plt Count 309 K/uL (130-400) 03/25/24 16:34 MPV 9.8 fL (9.4-12.4) 03/25/24 16:34 Immature Gran % (Auto) 0.6 % 03/25/24 16:34 Neut % (Auto) 60.9 % 03/25/24 16:34 Lymph % (Auto) 24.7 % 03/25/24 16:34 [place] % (Auto) 10.3 % 03/25/24 16:34 Eos % (Auto) 2.5 % 03/25/24 16:34 Baso % (Auto) 1.0 % 03/25/24 16:34 Neut # (Auto) 6.39 K/uL (1.40-6.50) 03/25/24 16:34 Lymph # (Auto) 2.59 K/uL (1.20-3.40) 03/25/24 16:34 [place] # (Auto) 1.08 K/uL (0.11-0.59) H 03/25/24 16:34 Eos # (Auto) 0.26 K/uL (0.00-0.50) 03/25/24 16:34 Baso # (Auto) 0.11 K/uL (0.00-0.20) 03/25/24 16:34 Immature Gran # (Auto) 0.06 K/uL (0.01-0.20) 03/25/24 16:34 PT 10.9 Seconds (9.0-12.0) 03/25/24 16:34 INR 1.0 (0.9-1.1) 03/25/24 16:34 Sodium 136 mmol/L (136-145) 03/25/24 16:34 Potassium 4.7 mmol/L (3.5-5.1) 03/25/24 16:34 Chloride 100 mmol/L (98-107) 03/25/24 16:34 Carbon Dioxide 27 mmol/L (21-32) 03/25/24 16:34 Anion Gap 9 (3-11) 03/25/24 16:34 BUN 19 mg/dl (6-23) 03/25/24 16:34 Creatinine 0.98 mg/dl (0.6-1.2) 03/25/24 16:34 Est Cr Clr Drug Dosing 29.5 ml/min 03/25/24 16:34 eGFR 59.82 03/25/24 16:34 BUN/Creatinine Ratio 19.4 (10-20) 03/25/24 16:34 Glucose 100 mg/dl (70-99(Fasting)) H 03/25/24 16:34 Calcium 9.5 mg/dl (8.6-10.3) 03/25/24 16:34 Total Bilirubin 0.6 mg/dl (0.2-1.0) 03/25/24 16:34 AST 148 U/L (13-39) H 03/25/24 16:34 ALT 147 U/L (7-52) H 03/25/24 16:34 Alkaline Phosphatase 331 U/L (34-104) H 03/25/24 16:34 Troponin I High Sens 7.7 pg/ml (0-14) 03/25/24 16:34 Total Protein 7.8 gm/dl (6.0-8.3) 03/25/24 16:34 Albumin 3.8 gm/dl (3.4-5.0) 03/25/24 16:34 Globulin 4.0 gm/dl (2.5-4.0) 03/25/24 16:34 Albumin/Globulin Ratio 1.0 (0.9-2) 03/25/24 16:34 Urine Color Yellow 03/25/24 19:24 Urine Appearance Clear (Clear) 03/25/24 19:24 Urine pH 6.5 (4.5-7.5) 03/25/24 19:24 Ur Specific [place] 1.036 (1.000-1.030) H 03/25/24 19:24 Urine Protein Negative (Negative) 03/25/24 19:24 Urine Glucose (UA) Negative (Negative) 03/25/24 19:24 Urine Ketones Negative (Negative) 03/25/24 19:24 Urine Blood Negative (Negative) 03/25/24 19:24 Urine Nitrite Negative (Negative) 03/25/24 19:24 Urine Bilirubin Negative (Negative) 03/25/24 19:24 Urine Urobilinogen Negative (Negative) 03/25/24 19:24 Ur Leukocyte Esterase Negative (Negative) 03/25/24 19:24 SARS-CoV-2, RNA, NAAT NEGATIVE (NEGATIVE) 03/25/24 16:[address] 03/25/24 16:[address] without contrast CT angiogram of the neck CT angiogram of the brain with contrast Provided History: Neuro deficit Comparison: None Technique: HEAD CT: Using multidetector thin collimation helical acquisition technique, axial, coronal and sagittal CT images from the skull base to the vertex were obtained without intravenous contrast. HEAD and NECK CTA: During rapid bolus intravenous injection of nonionic contrast material, axial images were obtained using thin collimation multidetector helical technique from the base of the neck through the Vertex of vertex of the head. This CT angiogram data was reconstructed at thin intervals with mild overlap. 3D reconstructions were obtained. The axial source images, multiplanar reformations, 3D reconstructions in both maximum intensity projection display and volume rendered models were reviewed. Dose reduction techniques were achieved by using automatic exposure control and/or adjustment of mA and/or kV according to patient size and/or use of iterative reconstruction technique. Findings: Head CT: There is no intracranial hemorrhage, mass effect, or midline shift. Lamb/white matter differentiation in both cerebral hemispheres is preserved. Ventricles are proportionate to the cerebral sulci. There is moderate cerebral atrophy. Moderate, patchy low-attenuation changes in the white matter, most suggestive of sequelae of chronic small vessel ischemic disease. Head CTA demonstrates no aneurysm or stenosis of the major intracranial arteries. Neck CTA demonstrates patent distal internal carotid arteries. There is mixed atherosclerotic plaque at the carotid bulbs bilaterally. At the proximal left ICA as well there is an area of prominent calcified and noncalcified atherosclerotic plaque, resulting in focal, approximately 50% stenosis. No hemodynamically significant stenosis of the proximal right ICA. Vertebral arteries are patent. The origins of the great vessels from the aortic arch are patent. The normal distal right internal carotid artery measures 5 mm. The normal distal left internal carotid artery measures 5 mm. No mass is noted within the visualized portions of the cervical soft tissues or lung apices. The lungs are severely emphysematous. Impression: 1. Head CTA demonstrates no aneurysm or stenosis of the major intracranial arteries, 2. Neck CTA demonstrates focal, approximately 50% stenosis at the proximal left ICA related to mixed plaque. Otherwise the distal internal carotid arteries are widely patent. 3. No intracranial hemorrhage on the noncontrast head CT. The study was analyzed using artificial intelligence software for large vessel occlusion detection. Electronically signed by Jian Morin 03-25-2024 6:20 PM Head CTA 03/25/24 16:[address] without contrast CT angiogram of the neck CT angiogram of the brain with contrast Provided History: Neuro deficit Comparison: None Technique: HEAD CT: Using multidetector thin collimation helical acquisition technique, axial, coronal and sagittal CT images from the skull base to the vertex were obtained without intravenous contrast. HEAD and NECK CTA: During rapid bolus intravenous injection of nonionic contrast material, axial images were obtained using thin collimation multidetector helical technique from the base of the neck through the Vertex of vertex of the head. This CT angiogram data was reconstructed at thin intervals with mild overlap. 3D reconstructions were obtained. The axial source images, multiplanar reformations, 3D reconstructions in both maximum intensity projection display and volume rendered models were reviewed. Dose reduction techniques were achieved by using automatic exposure control and/or adjustment of mA and/or kV according to patient size and/or use of iterative reconstruction technique. Findings: Head CT: There is no intracranial hemorrhage, mass effect, or midline shift. Lamb/white matter differentiation in both cerebral hemispheres is preserved. Ventricles are proportionate to the cerebral sulci. There is moderate cerebral atrophy. Moderate, patchy low-attenuation changes in the white matter, most suggestive of sequelae of chronic small vessel ischemic disease. Head CTA demonstrates no aneurysm or stenosis of the major intracranial arteries. Neck CTA demonstrates patent distal internal carotid arteries. There is mixed atherosclerotic plaque at the carotid bulbs bilaterally. At the proximal left ICA as well there is an area of prominent calcified and noncalcified atherosclerotic plaque, resulting in focal, approximately 50% stenosis. No hemodynamically significant stenosis of the proximal right ICA. Vertebral arteries are patent. The origins of the great vessels from the aortic arch are patent. The normal distal right internal carotid artery measures 5 mm. The normal distal left internal carotid artery measures 5 mm. No mass is noted within the visualized portions of the cervical soft tissues or lung apices. The lungs are severely emphysematous. Impression: 1. Head CTA demonstrates no aneurysm or stenosis of the major intracranial arteries, 2. Neck CTA demonstrates focal, approximately 50% stenosis at the proximal left ICA related to mixed plaque. Otherwise the distal internal carotid arteries are widely patent. 3. No intracranial hemorrhage on the noncontrast head CT. The study was analyzed using artificial intelligence software for large vessel occlusion detection. Electronically signed by Jian Morin 03-25-2024 6:20 PM Neck CTA 03/25/24 16:[address] without contrast CT angiogram of the neck CT angiogram of the brain with contrast Provided History: Neuro deficit Comparison: None Technique: HEAD CT: Using multidetector thin collimation helical acquisition technique, axial, coronal and sagittal CT images from the skull base to the vertex were obtained without intravenous contrast. HEAD and NECK CTA: During rapid bolus intravenous injection of nonionic contrast material, axial images were obtained using thin collimation multidetector helical technique from the base of the neck through the Vertex of vertex of the head. This CT angiogram data was reconstructed at thin intervals with mild overlap. 3D reconstructions were obtained. The axial source images, multiplanar reformations, 3D reconstructions in both maximum intensity projection display and volume rendered models were reviewed. Dose reduction techniques were achieved by using automatic exposure control and/or adjustment of mA and/or kV according to patient size and/or use of iterative reconstruction technique. Findings: Head CT: There is no intracranial hemorrhage, mass effect, or midline shift. Lamb/white matter differentiation in both cerebral hemispheres is preserved. Ventricles are proportionate to the cerebral sulci. There is moderate cerebral atrophy. Moderate, patchy low-attenuation changes in the white matter, most suggestive of sequelae of chronic small vessel ischemic disease. Head CTA demonstrates no aneurysm or stenosis of the major intracranial arteries. Neck CTA demonstrates patent distal internal carotid arteries. There is mixed atherosclerotic plaque at the carotid bulbs bilaterally. At the proximal left ICA as well there is an area of prominent calcified and noncalcified atherosclerotic plaque, resulting in focal, approximately 50% stenosis. No hemodynamically significant stenosis of the proximal right ICA. Vertebral arteries are patent. The origins of the great vessels from the aortic arch are patent. The normal distal right internal carotid artery measures 5 mm. The normal distal left internal carotid artery measures 5 mm. No mass is noted within the visualized portions of the cervical soft tissues or lung apices. The lungs are severely emphysematous. Impression: 1. Head CTA demonstrates no aneurysm or stenosis of the major intracranial arteries, 2. Neck CTA demonstrates focal, approximately 50% stenosis at the proximal left ICA related to mixed plaque. Otherwise the distal internal carotid arteries are widely patent. 3. No intracranial hemorrhage on the noncontrast head CT. The study was analyzed using artificial intelligence software for large vessel occlusion detection. Electronically signed by Jian Morin 03-25-2024 6:20 PM Abdomen/Pelvis CT 03/25/24 17:34 EXAMINATION: CT of the abdomen and pelvis performed after the administration of IV contrast TECHNIQUE: Helical CT images from the lung bases through the symphysis pubis were obtained with contrast. Coronal and sagittal reformatted images were generated at a workstation for further assessment. Dose reduction techniques were achieved by using automatic exposure control and/or adjustment of mA and/or kV according to patient size and/or use of iterative reconstruction technique. COMPARISON: None HISTORY: Abdominal pain FINDINGS: Lower chest: No consolidation. No pleural effusion or pneumothorax. Mild scattered focal nodular densities throughout the periphery of the lung bases, left greater than right, compatible with infectious bronchiolitis. The lungs are emphysematous. Liver: No suspicious liver lesions. Portal veins appear patent. Gallbladder: No gallstones. No evidence of acute cholecystitis. Spleen: Normal size. Pancreas: No suspicious pancreatic lesions. The pancreatic duct is not dilated. Adrenal glands: No adrenal nodules. Kidneys: No hydronephrosis or obstructing renal stones. Bladder / Pelvic organs: Unremarkable. Bowel: No bowel obstruction. No abnormal bowel wall thickening. The appendix is unremarkable. Lymph nodes: No retroperitoneal, mesenteric, or pelvic lymphadenopathy. Peritoneum / Retroperitoneum: No free fluid or air within the abdomen. Vessels: Infrarenal fusiform abdominal aortic aneurysm, measuring up to 4.1 x 3.6 cm. There is eccentric noncalcified atheroma within the aneurysm, and a central enhancing lumen, measuring as small as 1.6 cm. Heavily calcified common iliac arteries. There is a focal, saccular nonenhancing aneurysm filled with noncalcified atheromatous disease measuring 1.5 cm of the right common iliac artery. Bones and soft tissues: No suspicious lesion in the bones. Osteopenia. Degenerative changes of the lumbar spine. Grade 1 L4 anterolisthesis. IMPRESSION: No acute finding in the abdomen or pelvis. Infrarenal abdominal aortic aneurysm. 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 Mild infectious bronchiolitis seen in the lung bases. Electronically signed by Jian Morin 03-25-2024 6:20 PM ECG Additional Comments: EKG with SR at 75bpm with premature narrow complexes, left axis, GA=046, QRS=78. BKd=055, no acute ischemic changes PG Care Time/CCT Total # of Minutes Spent Total Time Spent with Patient: Total time spent is greater than 50% in coordination of care (as documented) at patient's floor/unit and/or counseling patient: Coding Level of Care Code 13673 INT INP/OBS CARE 2MIN Diagnoses Dizziness R42 Abnormal LFTs R79.89 Bronchiolitis J21.9
[2024-03-25] MEDS ORDERED: ACETAMINOPHEN 325 MG TAB PO PRN (21:38)
[2024-03-25] MEDS ORDERED: PHARMACIST DISCHARGE MED REC CONSULT PRN (21:38)
--- NOTE | 2024-03-25 22:46 | CT Scan Report ---
Exam(s): CT CHEST Without Contrast EXAM: CT Chest Without Intravenous Contrast CLINICAL HISTORY: Reason for exam: Possible PNA caught on CT abdomen. TECHNIQUE: Axial computed tomography images of the chest without intravenous contrast. Automated exposure control was utilized for the study. A dose lowering technique was utilized adhering to the principles of ALARA. COMPARISON: No relevant prior studies available. FINDINGS: Lungs: Patchy nodular infiltrate left lower lobe. Right middle lobe bronchiectasis with mucus plugging. Diffuse changes COPD. Pleural space: Unremarkable. No pneumothorax. No significant effusion. Heart: Unremarkable. No cardiomegaly. No significant pericardial effusion. No significant coronary artery calcifications. Bones/joints: Unremarkable. No acute fracture. No dislocation. Soft tissues: Unremarkable. Vasculature: 3.1 x 4.1 cm infrarenal abdominal aortic aneurysm incompletely evaluated on this exam. 3.5 cm ascending thoracic aortic aneurysm. Lymph nodes: Unremarkable. No enlarged lymph nodes. IMPRESSION: No acute findings in the chest. 4.1 cm infrarenal abdominal aortic aneurysm 3.5 cm ascending thoracic aortic aneurysm Left lower lobe pneumonia. Electronically signed by: Keron Mejía MD 03/25/24 22:44 PM
[2024-03-26 06:01] LABS: Hematocrit (blood only) 32.8 % (37.0-47.0); Hemoglobin 10.4 g/dl (12.0-16.0); Mean Corpuscular Hemoglobin 29.1 pg (25.0-34.0); Mean Corpuscular Hgb Conc 31.7 g/dL (32.0-36.0); Mean Corpuscular Volume 91.6 fL (80.0-100.0); Mean Platelet Volume 9.8 fL (9.4-12.4); Platelet Count 277 K/uL (130-400); RDW Coefficient of Variation 14.7 % (11.5-14.5); RDW Standard Deviation 49.3 fL (36.4-46.3); Red Blood Count 3.58 M/uL (4.20-5.40); White Blood Count 7.44 K/ul (4.8-10.8)
[2024-03-26 06:19] LABS: Albumin Level 3.2 gm/dl (3.4-5.0); BUN Creatinine Ratio 17.3 (10-20); Bilirubin Direct 0.1 mg/dl (0-0.2); Bilirubin,Total 0.5 mg/dl (0.2-1.0); Calcium 8.9 mg/dl (8.6-10.3); Chol HDL Ratio 2.4 (0-5); Creatinine Clr Calc Pharmacy 29.6 ml/min; Potassium 4.7 mmol/L (3.5-5.1); Total Protein 6.4 gm/dl (6.0-8.3)
[2024-03-26 07:02] LABS: Estimated Average Glucose 117 mg/dl; Hemoglobin A1C 5.7 % (4.5-5.6)
[2024-03-26 07:40] VITALS: TEMP 97.7
[2024-03-26] MEDS: ROSUVASTATIN CALCIUM 20 MG TAB PO SCH (08:27)
[2024-03-26] MEDS: ASPIRIN 81 MG ECTAB PO SCH (08:27)
[2024-03-26] MEDS ORDERED: ATORVASTATIN 40 MG TAB PO SCH (09:00)
--- OUTSIDE RECORDS SUMMARY | 2024-03-26 09:38 | External Medical Summary | Continuity of Care Document ---
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 Phone Hans Pickett Primary Care Physician [phone] Encounter [facility] [id number] Date(s): 02/21/24 - 02/21/24 [facility] [address] [address] [phone] Encounter Diagnosis Body mass index [BMI] 19.9 or less, adult(Discharge Diagnosis) - 02/21/24 Ischemic stroke(Discharge Diagnosis) - 02/21/24 HTN (hypertension)(Discharge Diagnosis) - 02/21/24 COPD with hypoxia(Discharge Diagnosis) - 02/21/24 Former smoker(Discharge Diagnosis) - 02/21/24 Discharge Disposition: Home or Self Care Attending Physician: MD Zachery, Nolvia Dickerson Allergies, Adverse Reactions, Alerts No Known Allergies Assessment and Plan Extracted from: Title:Office Visit Note Author:DO Pickett Nicho las Date:02/21/24 1.Ischemic stroke Chronic condition, at goal Goal: prevent repeat infarct Data:lipid panelordered Plan: Tight BP control w/ olmesartan, continue ASA, atorvastatin, continue non-smoking status 2.HTN (hypertension) Chronic condition, at goal Goal: <130 systolic Data: vitals today,BMP ordered Plan: continue olmesartan 3.COPD with hypoxia Chronic condition, at goal Goal: O2>88% Data:vitals today,CBC ordered Plan: continue non smoking status, continue home O2 monitoring 4.Former smoker Chronic condition, at goal Goal: maintain non smoking status Plan: maintain non smoking status Immunizations Given and Recorded Vaccine Date Status Refusal Reason influenza virus vaccine, inactivated 02/21/24 Give n Medications aspirin 81 mg oral delayed release tablet Start: 08/21/23 1:38:00 PM EDT, 1 tab, PO, Daily Start Date: 08/21/23 Status: Ordered atorvastatin 80 mg oral tablet Start: 02/21/24 8:24:00 AM EDT, 1 tab, PO, Daily, Disp# 90 tab, Refills: 3, Pharmacy: [facility] Start Date: 02/21/24 Status: Ordered olmesartan 5 mg oral tablet Start: 02/21/24 8:25:00 AM EDT, 1 tab, PO, Daily, Disp# 90 tab, Refills: 3, Pharmacy: [facility] Start Date: 02/21/24 Status: Ordered Mental Status 02/21/24 Barriers to Learning one year None evide nt Mandatory Health Literacy Documentation Yes Health Literacy Communication Barriers N ever Primary Language Finnish Problem List Condition Confirmation Course Effective Dates Status Health St atus Informant COPD with hypoxia Confirmed Active Former smoker Confirmed Active HTN (hypertension) Confirmed Active Ischemic stroke Confirmed Active Tobacco user Confirmed Active Diagnosis Diagnosis Type Effective Dates Health Status Cl inical Service Informant HTN (hypertension) Discharge Diagnosis 02/21/24 Non-Specified COPD with hypoxia Discharge Diagnosis 02/21/24 Non-Specified Body mass index [BMI] 19.9 or less, adult Discharge Diagnosis 02/21/24 Non-Specified Ischemic stroke Discharge Diagnosis 02/21/24 Non-Specified Former smoker Discharge Diagnosis 02/21/24 Non-Specified Vital Signs Most recent to oldest [Reference Range]: 1 Height 154.1 cm (02/21/24 7:51 AM) Patient Weight 39.3 kg (02/21/24 7:51 AM) Body Mass Index 16.55 kg/m2 (02/21/24 7:51 AM) Heart Rate 69 bpm (02/21/24 7:51 AM) Respiratory Rate 16 br/min (02/21/24 7:51 AM) Blood Pressure 128/72mmHg (02/21/24 7:51 AM) Cuff Pulse Pressure 56 mmHg (02/21/24 7:51 AM) Social History Social History Type Response Smoking Status Former Smoker, quit within 31 days - 1 yr Sex Female Sex Representation Female (finding) FCM Outpt Note * DO Pickett Nicholas: PERFORM DO Kasper Jona M: MODIFY Event Display: FCM Outpt Note Authored Date: [id number] Chief Complaint 6 month f/u History of Present Illness 78 yo female here for 6 mo f/u. Finished Plavix, continues ASA. BP well controlled.Continues non smoking status. Able to complete ADLs. Denies CP, SOB. Physical Exam Vitals & Measurements HR:69(Monitored) RR:16 BP:128/72 SpO2:92% HT:154.1cm WT:39.300kg(Dosing) WT:39.3kg BMI:16.55 PHQ2 Data(Data Documented on:02/21/2024 07:50) Emotional health assessment NEGATIVE GENERAL: No acute distress. Well developed and well nourished. Vital signs reviewed as above. EYES: EOMI. Anicteric sclerae. HENT: Moist mucous membranes. RESPIRATORY: Markedlydecreased airentry b/l. Clear to auscultation bilaterally.No wheezing, rales, orrhonchi. CARDIOVASCULAR: Regularrate and rhythm.No murmurs. ABDOMEN: non-distended. EXTREMITIES: No gross deformities. SKIN: Warm, dry. NEUROLOGIC: Alert and oriented. Normal speech. No gross focal neurological deficits. PSYCHIATRIC: Cooperative. Appropriate mood and affect. Assessment/Plan 1.Ischemic stroke Chronic condition, at goal Goal: prevent repeat infarct Data:lipid panelordered Plan: Tight BP control w/ olmesartan, continue ASA, atorvastatin, continue non-smoking status 2.HTN (hypertension) Chronic condition, at goal Goal: <130 systolic Data: vitals today,BMP ordered Plan: continue olmesartan 3.COPD with hypoxia Chronic condition, at goal Goal: O2>88% Data:vitals today,CBC ordered Plan: continue non smoking status, continue home O2 monitoring 4.Former smoker Chronic condition, at goal Goal: maintain non smoking status Plan: maintain non smoking status Attestation Pt seen and examined in concert with agree with history and physical as documented above. Plan reviewed in detail. Personally examined patient. CV: RRR Lungs: CTA B/L with distant but equal breath sounds in all lunch bravo Problem List/Past Medical History Ongoing COPD with hypoxia Former smoker HTN (hypertension) Ischemic stroke Tobacco user Medications aspirin(aspirin 81 mg oral delayed release tablet), 81 mg= 1 tab, PO, Daily atorvastatin(atorvastatin 80 mg oral tablet), 80 mg= 1 tab, PO, Daily, 3 refills influenza virus vaccine, inactivated(influenza virus vaccine, inactivated High- Dose preservative-free TRIvalent IM susp), 0.5 mL, IM, ONCE olmesartan(olmesartan 5 mg oral tablet), 5 mg= 1 tab, PO, Daily, 3 refills Allergies NKA Social History Smoking Status Former Smoker, quit within 31 days - 1 yr Family History Cancer: Mother. Health Status Family Member(s) Recommendations Health Maintenance Pending(in the next year) OverDue Adult Influenza Vaccine due11/11/23and every 1year Due Adult COVID-19 Vaccination due02/21/24Unknown Frequency Adult Social Determinants of Health Screening due02/21/24Unknown Frequency Adult Tdap/Td Vaccine due02/21/24Unknown Frequency Hepatitis C Screening due02/21/24One-time only Medicare Annual Wellness Visit due02/21/24and every 1year Osteoporosis Screening due02/21/24One-time only Pneumococcal Vaccine Older Adults due02/21/24One-time only Shingles Vaccine due02/21/24One-time only Satisfied(in the past 1 year) Satisfied Body Mass Index on02/21/24.Satisfied by SRINIVAS Ramey [place] Electronic Signature on File Electronically Reviewed/Signed by: Hans Pickett DO Author Signature Dt/Tm:02/21/2024 08:38 AM Resident Department of Family Medicine Electronically Reviewed/Signed by: Esteban Kasper DO Cosigner Signature Dt/Tm: 02/21/2024 09:34 AM Department of Family Medicine [place] Patient Care team information Care Team Personnel Name: DO Pickett Nicholas Position: Resident Member Role: Primary Care Provider Address: [address] [place] [id number] Care Team Related Persons Name: CRIS LIEBERMAN
[2024-03-26] MEDS: DOXYCYCLINE HYCLATE 100 MG CAP PO SCH (09:49)
[2024-03-26 11:24] VITALS: PULSE 68; RESP 18; O2SAT 94
--- NOTE | 2024-03-26 11:51 | Discharge Summary ---
Discharge Summary Date of Service March 26, 2024 Principal Dx & Hospital Course #1 = Principal Diagnosis (1) Dizziness: The patient presented with vertigo symptoms which have now resolved. She is asymptomatic. She refused to get the MRI scan due to claustrophobia. No further testing is indicated at this time (2) Abnormal LFTs: Improving. Could be from a atorvastatin. She has been switched to rosuvastatin. LFTs will need to be followed up as an outpatient. (3) Bronchiolitis: Suspected bronchiectasis seen on chest CT scan. Associated with her COPD and emphysema. No significant change in her clinical status. No acute infectious process warranting antibiotic treatment at this time. Plan Home today, March 26. Follow-up with PCP as soon as possible Admission HPI Per Admitting Provider Stacie Mathias is a 78yo female with history of emphysema and prior CVA in August 2023 presenting with dizziness. Patient felt well yesterday with no complaints. She went to bed around 20:00. She fell asleep for a little while then woke up and looked at her wall in her bedroom. She has pictures hanging on the wall and reports that the pictures were spinning around. She denies visual loss, BROWN, numbness, tingling, weakness or other complaints at that time. She went back to sleep and slept on and off through the night with no further issues. Today she has a bitemporal headache but no other complaints. Patient afebrile, HD stable with no acute complaints at present. Discharge Exam General-alert and oriented x3, no fever, no chills. Very thin and cachectic appearing. No distress. HEENT-head atraumatic and normocephalic, pupils equal and reactive to light, extraocular muscles intact Neck-no lymphadenopathy or thyromegaly, trachea midline Chest-diminished breath sounds bilaterally. No inspiratory rales. No wheezing Cardiac-regular rate and rhythm, normal S1 and S2 Abdomen-normal bowel sounds, no hepatosplenomegaly Extremities-no cyanosis, clubbing, or edema Neuro-cranial nerves II through XII intact, motor and sensory function within normal limits, strength symmetrical, no focal deficits Psych-normal affect, normal mood Discharge Plan Discharge Items Patient Disposition: Home - Self-Care Reason For Visit: POSSIBLE CVA Discharge Diagnosis: Transient vertigo from suspected acute labyrinthitis, transaminitis Activity: Resume your previous activity Non-emergency contact: Primary Care Provider Call non-emergency contact if: your symptoms worsen Follow-up/Referrals: PCP,NO [Primary Care Provider] - Diet: Regular Addtl Attending Provider Instructions: Atorvastatin has been switched to rosuvastatin. A prescription has been sent to your pharmacy. All other medications remain the same. See your primary care provider soon as possible Pending Studies at Discharge: No Stand-Alone Forms: [facility], Sm[facility] Cessation Medications and DC Order Prescriptions: New rosuvastatin 20 mg Tablet 20 mg PO QAM Qty: 30 0RF Continued olmesartan 5 mg tablet 5 mg PO DAILY Aspir-81 81 mg PO QAM Discontinued atorvastatin 80 mg tablet 80 mg PO DAILY Discharge Orders: Discharge Order (Routine); Ordered 03/26/24 Ordered By: Unruly Harley Admission Data Admit Date/Time: 03/25/24 19:54 Attending Provider: Unruly Harley Admit Provider: Karoline Salazar Primary Care Provider: PCP,NO Other Providers: Karoline Salazar Hospital Stay Data Consultations 03/25/24 19:18 ED Decision to Admit Stat Diagnostic Imagining Performed 03/25/24 16:24 CT angio head w con Stat CT angio neck with con Stat CT head/brain wo con Stat 03/25/24 17:34 CT abd pelvis IV con only Stat 03/25/24 20:49 CT chest diagnostic wo con Stat 03/25/24 21:38 MR brain wo/w con Routine Pending Results Patient Have Any Pending Studies at Discharge: No Discharge Instructions Given to Patient (Per Discharging Provider) Atorvastatin has been switched to rosuvastatin. A prescription has been sent to your pharmacy. All other medications remain the same. See your primary care provider soon as possible Total Time Total Time Spent Total Time Spent (In Minutes): 50 minutes Coding Level of Care Code 81532 INP/OBS DISCH >30 MIN Diagnoses Dizziness R42 Abnormal LFTs R79.89 Bronchiolitis J21.9
--- NOTE | 2024-03-26 11:54 | Pharmacy Report ---
- Date of Service March 26, 2024 - Pharmacy CVA/TIA Medication Review Medications to Prevent Stroke handout has been added to the patients discharge packet. Antiplatelet(s) * aspirin 81 mg PO daily Cholesterol * High intensity statin: rosuvastatin 20 mg daily DVT Prophylaxis * SCD knee Therapeutic Anticoagulation * No history of Afib/Aflutter noted Type 2 Diabetes * Patient does not have T2DM
[2024-03-26 12:34] VITALS: BP 155/105
[2024-03-26] MEDS: STROKE PATIENT DISCHARGE STA (13:00)
--- NOTE | 2024-03-27 16:25 | Electrocardiogram Report ---
Test Reason : Blood Pressure : */* mmHG Vent. Rate : 75 BPM Atrial Rate : 75 BPM P-R Int : 144 ms QRS Dur : 78 ms QT Int : 376 ms P-R-T Axes : 88 -36 69 degrees QTcB Int : 419 ms Sinus rhythm with Premature supraventricular complexes Left axis deviation Old Septal infarct (cited on or before 17-Aug-2023) Abnormal ECG When compared with ECG of 17-Aug-2023 22:00, Premature supraventricular complexes are now Present Confirmed by Dominick Croft ([id number]) on 03/27/2024 4:25:21 PM Referred By: Hans Pickett Confirmed By: Dominick Croft
== END 2024-03-26 13:00 | disposition home or self-care (01) ==
LOC: ED 16:03 → 2N 16:03 → SUATTDRO 19:54 → 2N 20:48